=== PATIENT | male | born 1980 | race Hispanic/Latino ===

== ENCOUNTER 2018-01-29 11:06 | Outpatient (CLI) | payer MEDICARE ==
--- NOTE | 2018-01-29 11:53 | ULT ---
SONOGRAM ABDOMEN COMPLETE: HISTORY: Abnormal liver function tests. FINDINGS: Gallbladder has a normal appearance without evidence of stones. The common duct is 0.3 cm. The live r is hyperechoic without focal mass or intrahepatic biliary dilatation. No free fluid. The spleen, kidneys, and visualized portions of the abdominal aorta, IVC, and pancreas are unremarkable. IMPRESSION: 1. No evidence of gallstones or biliary obstruction. 2. Hepatosteatosis. POS: [facility]
== END 2018-01-29 11:07 | disposition home or self-care (01) ==
LOC: SCSULT 11:06
PROVIDERS: ATTEND Family Medicine
DX: R74.8 Abnormal levels of other serum enzymes (principal); K76.0 Fatty (change of) liver, not elsewhere classified
CPT/HCPCS: 76700

== ENCOUNTER 2020-08-19 12:40 | Inpatient (IN) | payer MEDICARE ==
[~2020-08-19 12:40] MED LIST: Dexamethasone 20 MG/5 ML VIAL ONE; Glycopyrrolate 0.2 MG/ML 5 ML SYRINGE ONE; Lidocaine 1% PF 5 ML VIAL ONE; Metoclopramide HCl 10 MG/2 ML VIAL ONE; Ondansetron PF 4 MG/2 ML Vial ONE; PROPOFOL 200 MG/20 ML VIAL ONE; Rocuronium Bromide 10 MG/ML (10ML VIAL) ONE
[2020-08-19] MEDS ORDERED: Iopamidol-370 76% 500 ML 1 ML ONE (13:44)
--- NOTE | 2020-08-19 14:11 | CT ---
Exam: CT angiogram of the abdominal aorta with bilateral lower extremity runoff HISTORY: Absent pulses in the left lower extremity. Peripheral vascular disease. COMPARISON: None TECHNIQUE: Multiple contiguous axial images were obtained a CTA of the abdomen, pelvis, and bilateral lower extremities with contrast. Sagittal and coronal 3-D MIP reformats were performed. FINDINGS: Liver: Unremarkable. Gallbladder: Unremarkable. Kidneys: Symmetric enhancement. There is scarring in the left renal cortex. No obstructive uropathy. Adrenal glands: Unremarkable. Spleen: Unremarkable. Pancreas: Unremarkable. Bowel: Limited evaluation of the lack of oral contrast. No evidence of a small bowel obstruction. Nor mal ileocecal junction. Normal caliber appendix. Diverticulosis is minimal. No diverticulitis. Colon is decompressed.. Reproductive organs :Unremarkable. Retroperitoneum: No lymphadenopathy Bones: Degenerative changes in the spine. Inferior thorax: 0.5 cm right lower lobe solid nodule.. Abdominal aorta. The descending thoracic aorta and suprarenal abdominal aorta have a normal caliber. There is a filling defect in the infrarenal abdominal aorta with mild luminal narrowing. This filling defect extends into the proximal left common iliac artery with long segment severe stenosis. Celiac trunk: Patent SMA: There is an occlusive thrombus involving the proximal superior mesenteric artery, just beyond it s origin. Distal to this 1.4 cm thrombus, the remainder of the proximal superior mesenteric artery appears to be patent. MAGDA: There is minimal thrombus in the proximal inferior mesenteric artery with linear defect. Renal arteries: Bilateral single renal arteries without significant atherosclerotic disease Bilateral common iliac arteries: There is severe stenosis of the left common iliac artery. Right comm on iliac artery is patent.. Internal iliac arteries: Unremarkable. External iliac arteries: Minimal nonocclusive thrombus involving the left external iliac artery. Severe stenosis Common femoral arteries: Unremarkable. Profunda femoral arteries: Unremarkable. Superficial femoral arteries: Unremarkable. Popliteal arteries: Unremarkable. Right lower extremity: 3 vessel runoff without significant disease. There is vascular enhancement of the right foot. Left lower extremity: There appears to be occlusion of the posterior vertebral artery and peroneal ar angelo. There appears to be single vessel supply from the anterior tibial artery down to level the ankle. There is vascular enhancement in the left foot. There is soft tissue swelling of the left foot . IMPRESSION: 1. Atherosclerosis involving the superior mesenteric artery. 2. Minimal linear defect. Atherosclerosis in the inferior mesenteric artery. 3. Severe stenosis involving the left common iliac artery. 4. Minimal thrombus in the left external iliac artery. 5. Occlusion of the left peroneal and posterior tibial artery, presumed to be due to a thrombus at th e origin of the left arterial trifurcation. Results study discussed with Dr. Albarado08/19/2020 at 2:06 PM Code CR Code lung nodule
[2020-08-19] MEDS ORDERED: Protamine Sulfate 50 MG/5 ML VIAL ONE ×2 (14:22→19:12)
[2020-08-19] MEDS ORDERED: Heparin 5,000 UNITS/ML VIAL ONE ×2 (14:22→19:12)
[2020-08-19] MEDS ORDERED: Fentanyl 250 MCG/5 ML VIAL ONE ×2 (14:33→19:08)
[2020-08-19] MEDS ORDERED: Promethazine HCl 25 MG/ML VIAL SLOW IVP PRN ×3 (16:57→20:59)
[2020-08-19] MEDS ORDERED: Promethazine HCl 25 MG/ML VIAL IM PRN ×3 (16:57→20:59)
[2020-08-19] MEDS ORDERED: Ondansetron HCl/PF 4 MG/2 ML Vial IVP PRN ×3 (16:57→20:59)
[2020-08-19] MEDS ORDERED: PACU-Morphine 4MG/ML VIAL SLOW IVP PRN (16:57)
[2020-08-19] MEDS ORDERED: HYDROmorphone 2 MG/ML VIAL SLOW IVP PRN ×2 (16:57→20:59)
[2020-08-19] MEDS ORDERED: Meperidine HCl/PF 25 MG/ML VIAL ONE ×2 (17:05→20:55)
[2020-08-19] MEDS ORDERED: Meperidine HCl/PF 25 MG/ML VIAL SLOW IVP PRN ×2 (17:06→20:59)
[2020-08-19] MEDS ORDERED: hydrALAZINE 20 MG/ML VIAL SLOW IVP PRN (17:23)
[2020-08-19] MEDS ORDERED: Sodium Chloride 0.9% 1,000 ML IV SCH (17:30)
[2020-08-19] MEDS ORDERED: HYDROcodone/Acetaminophen 5/325 mg Tablet PO PRN (17:31)
[2020-08-19] MEDS ORDERED: Fentanyl 100 MCG/2 ML VIAL ONE ×3 (17:35→19:29)
--- NOTE | 2020-08-19 18:07 | OP ---
DATE OF PROCEDURE: 08/19/2020 PROCEDURES PERFORMED: Left iliofemoral thrombectomy, selective left posterior tibial thrombectomy with patch angioplasty, and left lower extremity four compartment fasciotomy. PREOPERATIVE DIAGNOSIS: Acute left lower extremity ischemia. POSTOPERATIVE DIAGNOSIS: Acute left lower extremity ischemia. ANESTHESIA: General endotracheal anesthesia. INDICATIONS: The patient is a 40-year-old man, who presented with 2 days of pain in his left foot and clinically has an ischemic foot. FINDINGS: Small amounts of organized thrombus extracted from the iliofemoral vessels proximally and distally, but unable to pass the Maria Del Carmen catheter more than about 58 cm from the groin and selective posterior tibial thrombectomy was necessary to reestablish inflow to that point. Postoperatively, the patient's capillary refill gradually improved. There was a Doppler pulse of the posterior tibial in the foot and a palpable pulse in the anterior tibial within the fasciotomy wound. The muscles were pink, viable, and did not bulge. DESCRIPTION OF PROCEDURE: After informed consent was obtained, the patient was taken to the operating room and placed in supine position on the operating table. After induction of general anesthesia, the patient's left groin and left lower extremity were prepped and draped in sterile fashion. An oblique incision was made parallel and just below the left groin crease over the palpable femoral pulse. The superficial femoral artery was rather small. The profunda was rather large. The common femoral was modest size and had a palpable pulse in it. The common femoral was isolated and the patient was heparinized. After adequate circulation time of heparin, proximal and distal control was established on the common femoral artery and was opened longitudinally with an 11 blade scalpel and Metzger scissors. A #4 Maria Del Carmen catheter was passed distally down the superficial femoral artery. At first, it was not possible to pass it beyond about 45 or 50 cm and no thrombus was extracted when withdrawn. It was then passed another time and it could be passed almost 60 cm, and upon withdrawing it, a very small plug of organized thrombus was extracted. The Maria Del Carmen was passed two more times until no more thrombus was extracted. At each time the thrombus was extracted, it was only a small caliber organized thrombus with the exception of the first time the Maria Del Carmen was passed proximally, when a strand of relatively fresh thrombus was extracted. Upon examining the wound after establishing brisk inflow, a few small plugs of organized thrombus were identified within the wound that had not been seen as the Maria Del Carmen was withdrawn. Vascular controls were reapplied and the arteriotomy was closed with running 6-0 Prolene suture 60 cm from the groin corresponded about 1 to 1-1/2 handbreadths below the knee, just anterior to the saphenous vein. At that point, the skin was sharply incised medially and the tributary to the saphenous was ligated and divided. The fascia of the superficial posterior compartment was first incised, extending it proximally and distally and then the electrocautery was used to carry the incision through the musculature to expose the deep posterior compartment fascia. It was longitudinally incised and the posterior tibial artery was identified. It was reasonably good sized small vessel, though spastic. There was no palpable pulse in it. It was opened longitudinally and a #3 Maria Del Carmen catheter was passed distally. No thrombotic material was extracted, but upon passing it proximally, a plug of thrombotic material was extracted and brisk bleeding was reestablished at that level. The Maria Del Carmen was again passed. No more thrombus was extracted. A piece of the tributary to the saphenous in the wound was harvested and used as a vein patch to close that arteriotomy with running 7-0 Prolene suture. At that same level anterolaterally, an incision was made longitudinally and the anterior and lateral compartments were incised. Blunt dissection was used to divide the muscle bellies to unroof the anterior tibial and it had a palpable pulse to the length of that fasciotomy incision. The wounds were inspected for hemostasis, while there was some oozing from the fasciotomy incisions, hemostasis appeared to be grossly adequate within the dissection beds and adequate at the suture lines of arteriotomies. It was elected to not reverse the heparin and planned on starting a heparin drip a few hours postoperatively. The groin wound was closed in deep and superficial subcutaneous layers of Vicryl and then a Vicryl subcuticular suture and Dermabond, the fasciotomy incisions as there was no significant bulging of the musculature were loosely closed with widely spaced interrupted nylon skin suture. The wounds were dressed and the patient was awakened and extubated in the operating room and taken to the recovery area in good condition, where he had significantly improved color in the left foot, filling of the saphenous vein at the ankle, and a Doppler posterior tibial pulse. Job ID: [id number]
--- NOTE | 2020-08-19 18:26 | HP ---
CHIEF COMPLAINT: Left foot and calf pain. HISTORY OF PRESENT ILLNESS: The patient is a 40-year-old man, who several years ago had a left hemispheric stroke. There was somewhat sketchy description from the patient and his mother and son about having undergone knee surgery 10 years ago and 3 weeks after that having had a stroke due to "bunches of clots." The patient has been of late maintained only on an aspirin a day and has been in his usual state of health. About 2 days ago, he had sudden onset of pain in his left foot with crampy pain in his left calf. It persisted, and today, he decided to seek medical attention. He was found to have a cool, mottled left foot, and he was transferred here. The patient denies any palpitations, any known heart problems, or any antecedent leg pain consistent with claudication. PAST MEDICAL HISTORY: As above. MEDICATIONS: His only medicines are; 1. Adult aspirin. 2. Simvastatin 10 mg a day. 3. Baclofen 10 mg t.i.d. 4. Multivitamin. ALLERGIES: HE REPORTS AN ALLERGY TO PENICILLIN, BUT IS UNCLEAR TO THE REACTION IT CAUSES. SOCIAL HISTORY: He denies smoking or drinking. FAMILY HISTORY: He denies any family history of thrombotic disorders. REVIEW OF SYSTEMS: He has at baseline some right-sided weakness and dysarthria, but he has no episodic focal symptoms consistent with TIAs. No chest pain. No shortness of breath. No antecedent claudication. He has not had any recent fever, chills, cough, muscle aches, or shortness of breath. PHYSICAL EXAMINATION: GENERAL: He is in mild distress due to pain. VITAL SIGNS: Heart rate is 98, blood pressure 130/94, temperature 98.4. LUNGS: He has clear breath sounds. HEART: Regular rate and rhythm. ABDOMEN: Soft and nontender. EXTREMITIES: He has easily palpable radial, femoral, and popliteal pulses bilaterally. His right dorsalis pedis and posterior tibial pulses are easily palpable, and his right foot is warm and pink with brisk capillary refill. There is a temperature demarcation at about the ankle on the left. His left foot is pale with some mottling. I am not able to palpate or Doppler dorsalis pedis or posterior tibial pulses and the veins in that foot are flat. I am able to Doppler the proximal anterior tibial artery high in the calf. His compartments are somewhat tender, but seems soft. The sole of his foot seems tender and it is difficult to tell if he complains of compartment pain or pain in sole of his foot with passive dorsiflexion. LABORATORY EXAM: White count is 11.3, hemoglobin is 18.0, hematocrit 53.2, platelets 154,000. His electrolytes are normal. Glucose 110, BUN 25, creatinine 1.11, bilirubin is 2.7, alkaline phosphatase 133, AST 77, ALT 133, albumin 4.9. COVID is negative. His CTA that I requested shows short-segment thrombosis of the superior mesenteric artery near its origin. There is a layer of what appears to be organized thrombus along the left lateral aspect of the distal aorta, extending into and at some points almost occluding the common iliac artery, but the common iliac distally on down to the common femoral as well as the internal iliac readily opacify, down below the knee, the tibioperoneal trunk on the left side is occluded, but those vessels reconstitute the anterior tibial and perhaps is a little narrowed proximally, but is patent down to the foot. IMPRESSION AND RECOMMENDATION: It is not clear if this represents new thrombosis, embolism of organized thrombus either from a cardiac source or an aortic source, or if this represents some combination of that and atherosclerotic occlusive disease. His signs and symptoms would indicate that he seems to have a limited risk. We will plan on taking to the operating room for thrombectomy, but it may require short-segment bypass. Job ID: [id number]
[2020-08-19] MEDS ORDERED: Ondansetron PF 4 MG/2 ML Vial ONE (19:03)
[2020-08-19] MEDS ORDERED: Heparin 25,000 units/D5W 500 ML IV SCH (21:15)
[2020-08-19] MEDS ORDERED: Heparin 10,000 UNITS/ 10 ML VIAL SLOW IVP SCH (21:15)
[2020-08-19 22:56] VITALS: BMI 28.7
[2020-08-19] MEDS: Fentanyl 100 MCG/2 ML VIAL SLOW IVP PRN (23:29)
[2020-08-19] MEDS: HYDROcodone/Acetaminophen 5/325 mg Tablet PO PRN (23:31)
--- NOTE | 2020-08-20 00:20 | OP ---
DATE OF PROCEDURE: 08/19/2020 PROCEDURE PERFORMED: Redo left posterior tibial thrombectomy. PREOPERATIVE DIAGNOSIS: Recurrent ischemia, left foot. POSTOPERATIVE DIAGNOSIS: Recurrent ischemia, left foot. ANESTHESIA: General endotracheal anesthesia. INDICATIONS: The patient is a 40-year-old man with a what is described as a hypercoagulable syndrome associated with a stroke several years ago. He presented with a day or 2 of ischemic symptoms in his left foot and is immediately postop following an attempt at thrombectomy. Within an hour or 2 of surgery, his posterior tibial pulses have been Doppler and the bowl on the foot was lost and his foot had become mottled again. FINDINGS: Palpable pulse in the posterior tibial within the surgical wound, but a percussive quality to the Doppler signal. No thrombus could be extracted even though a Maria Del Carmen could be passed 8-10 cm beyond the medial malleolus. Postprocedure, a Doppler pulse could be found in the proximal foot in the posterior tibial position. DESCRIPTION OF PROCEDURE: After informed consent was obtained, the patient was returned to the operating room and placed in supine position on the operating table. After the induction of general anesthesia, his left lower extremity was prepped and draped in sterile fashion. The skin sutures from the medial incision on the lower leg were removed. The posterior tibial artery was exposed by using a Weitlaner retractor to separate the divided belly of the posterior compartment musculature. There was a palpable pulse in the posterior tibial artery. There was no thrombus within the wound compressing it or any kinking of the vessel. Doppler signal could not be found in the posterior tibial in the foot or in the distal ankle, but it could be found within the wound. This quality of signal however was rather percussive. Patient was heparinized and after adequate circulation time of heparin, vascular clamps were applied to the posterior tibial proximally and distally to the previous arteriotomy and patch. An 11 blade scalpel was used to take down the vein patch. #4 Maria Del Carmen catheter was passed several times distally as well as once proximally. No thrombus could be extracted. Very sluggish backflow bleeding was achieved from the posterior tibial distally even though extremely brisk inflow bleeding from the posterior tibial proximally was present. The tributary to the saphenous at the superior apex of the wound was harvested and bivalved and used as an onlay patch to close the arteriotomy with 7-0 Prolene suture. There was a Doppler signal in the posterior tibial in the foot fairly proximally, but could not be followed along the medial malleolus distally. When hemostasis was adequate, the skin was reclosed with interrupted nylon suture and the wounds were dressed. The patient returned to the recovery area in good condition. Job ID: [id number]
[2020-08-20 00:55] LABS: #Monocytes 0.9 thou/uL (0.11-0.59); #Neutrophils 9.6 thou/uL (1.40-6.50); %Basophils 0.1 % (0.0-1.0); %Lymphocytes 8.8 % (21.0-51.0); %Monocytes 7.7 % (0.0-10.0); %Neutrophils 83.3 % (42.0-75.0); Hemoglobin 13.8 g/dL (14.0-18.0); Mean Corpuscular HGB CONC 34.5 g/dL (32.0-36.0); Mean Corpuscular Hemoglobin 31.4 pg (27.0-31.0); Mean Corpuscular Volume 91.1 fL (78.0-98.0); Mean Platelet Volume 8.7 fL (7.4-10.4); Platelet Count 111 thou/uL (130-400); Platelet Morphology Comment Appears Decreased; RBC Distribution Width 10.9 % (11.5-14.5); Red Blood Cell (RBC) Count 4.39 mill/uL (4.70-6.10); White Blood Cell (WBC) Count 11.6 thou/uL (4.8-10.8)
--- NOTE | 2020-08-20 01:30 | PDOC.HHP ---
Hospitalist HPI - History of Present Illness Consult for arterial thrombus History of Present Illness: This is a 40-year-old male with a history of hypercoagulable syndrome, CVA about 7 years ago with residual right-sided weakness and expressive aphasia who was transferred from [place] due to concerns for lower extremity arterial occlusion on the left. He is status post redo of left lower limb arterial thrombectomy. Patient notes that he has been having this pain for over a week now however for the past couple days has become extremely painful. CTA showed atherosclerosis involving the superior mesenteric artery, inferior mesenteric artery with severe stenosis involving the left common iliac artery. He also had minimal thrombus in his left external iliac artery. There was also occlusion of the left peroneal and posterior tibial artery presumably due to thrombus at the origin of the left anterior trifurcation. Based on that he was transferred here for further management. On arrival he was taken to surgery for attempted thrombectomy. 2 hours after surgery he seemed to have developed worsening circulation with mottled foot status requiring a redo of his left posterior tibial thrombectomy. Postop he was generally stable and sent to the CCU. Hospitalist team was consulted for medical management. At the time of my evaluation, postop, patient was lying in bed comfortably however intermittently appears to be in pain in his left lower extremity and sometimes on the right. Besides lower extremity pain he denied any other symptoms of chest pain shortness of breath abdominal pain or dysuria or frequency. Also denied any headache. His vital signs were essentially within normal limits. Preop labs showed WBC 11.6, hemoglobin 13.8, platelets 111, CBC was essentially within normal limits. He had slightly elevated AST at 77, ALT 63 and alkaline phosphatase 133. His medications include aspirin, hydrocodone, fentanyl, as needed hydralazine and he was due to start heparin at 2 AM on 08/20/2020. Hospitalist ROS - Review of Systems Constitutional: denies: fever, chills, sweats, weakness Respiratory: denies: cough, shortness of breath, hemoptysis, SOB with excertion Cardiovascular: denies: chest pain, palpitations, orthopnea, paroxysmal noc. dyspnea Genitourinary: denies: dysuria, frequency, incontinence, hematuria Neurological: denies: weakness, numbness, incoordination, change in speech Other: Patient has chronic dysphagia and expressive aphasia All other systems reviewed; all pertinent +/- noted in HPI/Subj - Medication Medications: Active Medications Generic Name Dose Route Start Last Admin Trade Name Freq PRN Reason Stop Dose Admin Hydrocodone Bitart/Acetaminophen 2 tab 08/19/20 17:31 08/19/20 23:31 Hydrocodone/Acetaminophen 5/325 Mg Tablet PO 2 tab Q4H PRN Administration Severe Pain (7-10) Fentanyl 50 mcg 08/19/20 23:17 08/19/20 23:29 Fentanyl 100 Mcg/2 Ml Vial SLOW IVP 50 mcg Q1H PRN Administration Moderate to Severe Pain (6-10) Sodium Chloride 1,000 mls @ 100 mls/hr 08/19/20 17:30 08/19/20 23:29 Normal Saline 0.9% IV 08/20/20 03:29 1,000 mls .Q10H YURY Administration Sodium Chloride 10 ml 08/19/20 21:00 08/19/20 23:29 Flush - Normal Saline 10 Ml Syringe IVF 10 ml Q12HR YURY Administration Medications: Currently refer to ambulatory María. Allergies: Penicillin - Exam General Appearance: awake alert General - other findings: Has expressive aphasia. Eye: PERRL, anicteric sclera ENT: normocephalic atraumatic, no oropharyngeal lesions, moist mucosa Neck: supple, symmetric, no JVD, no thyromegaly Heart: RRR, no murmur, no gallops, no rubs Respiratory: CTAB, no wheezes, no rales, no ronchi Gastrointestinal: soft, non-tender, non-distended, normal bowel sounds Extremities: no cyanosis, no clubbing, no edema Extremities - other findings: Left leg surgery site is dressed. Skin mottled slightly Neurological - other findings: Dysarthric/aphasic otherwise cranial nerves grossly intact Musculoskeletal: normal tone, normal strength, no muscle wasting Psychiatric: normal affect, normal behavior, A&O x 3 Hospitalist Results - Labs Result Diagrams: 08/20/20 00:29 Lab results: WBC 11.6 thou/uL (4.8-10.8) H 08/20/20 00:29 Hgb 13.8 g/dL (14.0-18.0) L 08/20/20 00:29 Hct 40.0 % (42.0-52.0) L 12/27/20 00:29 MCV 91.1 fL (78.0-98.0) 08/20/20 00:29 Plt Count 111 thou/uL (130-400) L 08/20/20 00:29 Neutrophils % 83.3 % (42.0-75.0) H 08/20/20 00:29 Hospitalist H&P A/P - Plan Plan: This is a 40-year-old male patient with a history of stroke with residual right- sided weakness on admission on account of left lower extremity has 3 thrombosis in a status post thrombectomy and repeat procedure. Left arterial thrombosis Likely in the setting of hypercoagulable state. Aspirinstart heparin later We will monitor As needed pain relief Vascular surgery following. Hypercoagulable state This is not defined however will get hematology to assess in a.m. We will continue monitoring. Normal liver enzymes We will check acute hepatitis panel Consider GI evaluation in a.m. DVT prophylaxisto start heparin CODE STATUSfull
[2020-08-20] MEDS ORDERED: Heparin 25,000 units/D5W 500 ML IV SCH (02:00)
[2020-08-20] MEDS: Fentanyl 100 MCG/2 ML VIAL SLOW IVP PRN ×5 (02:05→22:39)
--- NOTE | 2020-08-20 09:36 | PDOC.HOSPP ---
- Subjective Encounter Date: 08/20/20 Encounter Time: 09:34 Subjective: Mr. Pruitt was seen today in follow-up of severe peripheral vascular disease, and recent thrombus to rigth lower extemity. He notes pain in his right leg. Due to aphasia, he is not able to elaborate much on this. - Objective Vital Signs & Weight: Vital Signs (12 hours) Temp Pulse Ox 08/20/20 04:00 99.0 F 08/20/20 00:00 98.0 F 08/19/20 22:00 97.8 F 100 Weight Weight 172 lb 6.424 oz Most Recent Monitor Data Heart Rate from ECG 96 NIBP 142/81 NIBP BP-Mean 101 Respiration from ECG 11 SpO2 98 I&O: 08/19/20 08/20/20 08/21/20 06:59 06:59 06:59 Intake Total 1506.3 Output Total 1460 225 Balance 46.3 -225 Result Diagrams: 08/20/20 00:29 Hospitalist ROS - Medication Medications: Active Medications Generic Name Dose Route Start Last Admin Trade Name Freq PRN Reason Stop Dose Admin Hydrocodone Bitart/Acetaminophen 2 tab 08/19/20 17:31 08/19/20 23:31 Hydrocodone/Acetaminophen 5/325 Mg Tablet PO 2 tab Q4H PRN Administration Severe Pain (7-10) Fentanyl 50 mcg 08/19/20 23:17 08/20/20 08:18 Fentanyl 100 Mcg/2 Ml Vial SLOW IVP 50 mcg Q1H PRN Administration Moderate to Severe Pain (6-10) Heparin Sodium/Dextrose 500 mls @ 0 mls/hr 08/20/20 02:00 08/20/20 02:04 Heparin 25,000 Units/D5w IV 500 mls INF YURY Administration Protocol As Directed Sodium Chloride 10 ml 08/19/20 21:00 08/19/20 23:29 Flush - Normal Saline 10 Ml Syringe IVF 10 ml Q12HR YURY Administration - Exam Eye: PERRL, anicteric sclera Heart: RRR, no murmur, no gallops, no rubs, normal peripheral pulses Respiratory: CTAB, no wheezes, no rales, no ronchi, normal chest expansion Gastrointestinal: soft, non-tender, non-distended, normal bowel sounds, no palpable masses Extremities: no cyanosis (incision site looks good, bilaterally, pulses are diminished on the right ( d.p.) feet are a bit cool, and capillary refill is a bit sluggish) Hosp A/P (1) Thrombosis of artery of right lower extremity Code(s): I74.3 - EMBOLISM AND THROMBOSIS OF ARTERIES OF THE LOWER EXTREMITIES Status: Acute (2) Hypercoagulable state Code(s): D68.59 - OTHER PRIMARY THROMBOPHILIA Status: Chronic (3) History of CVA (cerebrovascular accident) Code(s): Z86.73 - PRSNL HX OF TIA (TIA), AND CEREB INFRC W/O RESID DEFICITS Status: Chronic - Plan * Thrombosis of the right lower extremity, s/p thrombectomy- patient is clinically stable- continue Heparin drip * Will check a thrombosis panel * History of CVA with mild aphasia and right sided weakness- clinically stable- continue aspirin. He is not on a statin - will check a lipid panel in the AM to assess the need
[2020-08-20 09:47] LABS: INR-International Normal Ratio 1.1; Prothrombin Time 14.3 sec (12.0-14.7)
[2020-08-20 09:48] LABS: PTT 89.2 sec (22.9-36.1)
[2020-08-20 09:49] LABS: D-Dimer Test 0.76 *mcg/mL (0.27-0.43)
[2020-08-20] MEDS: HYDROcodone/Acetaminophen 5/325 mg Tablet PO PRN ×3 (10:20→23:50)
[2020-08-20] MEDS: Aspirin Chewable 81 MG TAB PO SCH (10:20)
[2020-08-20 16:12] LABS: Cardiolipin IgG Ab Greater than 418.0 GPL-U/mL (<10 Negative); Cardiolipin IgM Ab 4.3 MPL-U/mL (<10 Negative); EliA APS New Method **** NEW METHOD ****
[2020-08-20] MEDS ORDERED: Albuterol Sulfate 2.5 mg/3 ml Neb NEB PRN (22:14)
[2020-08-21] MEDS: Fentanyl 100 MCG/2 ML VIAL SLOW IVP PRN ×5 (03:42→23:39)
[2020-08-21 06:44] LABS: Cardiac Risk 4.4 (Less than 4.5)
[2020-08-21] MEDS: Aspirin Chewable 81 MG TAB PO SCH (08:37)
--- NOTE | 2020-08-21 09:46 | PDOC.HOSPP ---
- Subjective Encounter Date: 08/21/20 Encounter Time: 11:00 Subjective: Patient with persistent ischemic pain from left foot. Just got pain meds. Awaiting them to take him down for surgery for amputation. - Objective Vital Signs & Weight: Vital Signs (12 hours) Temp Pulse Resp BP Pulse Ox 08/21/20 08:02 98.1 F 99 20 119/87 100 08/21/20 03:48 98.1 F 88 16 138/81 98 08/20/20 23:22 99.7 F H 96 18 143/85 H 99 Weight Weight 172 lb 6.424 oz Most Recent Monitor Data Heart Rate from ECG 102 NIBP 162/98 NIBP BP-Mean 119 Respiration from ECG 20 SpO2 97 I&O: 08/20/20 08/21/20 08/22/20 06:59 06:59 06:59 Intake Total 1506.3 Output Total 1460 565 400 Balance 46.3 -563 -400 Result Diagrams: 08/20/20 00:29 Hospitalist ROS - Review of Systems Constitutional: denies: fever, chills Respiratory: denies: cough, shortness of breath Cardiovascular: denies: chest pain, palpitations Gastrointestinal: denies: nausea, vomiting, abdominal pain Musculoskeletal: reports: leg pain, foot pain - Medication Medications: Active Medications Generic Name Dose Route Start Last Admin Trade Name Freq PRN Reason Stop Dose Admin Hydrocodone Bitart/Acetaminophen 2 tab 08/19/20 17:31 08/20/20 23:50 Hydrocodone/Acetaminophen 5/325 Mg Tablet PO 2 tab Q4H PRN Administration Severe Pain (7-10) Aspirin 81 mg 08/20/20 09:00 08/21/20 08:37 Aspirin Chewable 81 Mg Tab PO Not Given DAILY YURY Fentanyl 50 mcg 08/19/20 23:17 08/21/20 08:34 Fentanyl 100 Mcg/2 Ml Vial SLOW IVP 50 mcg Q1H PRN Administration Moderate to Severe Pain (6-10) Heparin Sodium/Dextrose 500 mls @ 0 mls/hr 08/20/20 02:00 08/20/20 02:04 Heparin 25,000 Units/D5w IV 500 mls INF YURY Administration Protocol As Directed Sodium Chloride 10 ml 08/19/20 21:00 08/21/20 08:38 Flush - Normal Saline 10 Ml Syringe IVF 10 ml Q12HR YURY Administration - Exam General Appearance: NAD, awake alert ENT: moist mucosa Heart: RRR, no murmur, no gallops, no rubs Respiratory: CTAB, no wheezes, no rales, no ronchi Gastrointestinal: soft, non-tender, non-distended, normal bowel sounds, no palpable masses, no hepatomegaly, no splenomegaly Extremities - other findings: left foot with cyanosis, no pulse Neurological - other findings: partial aphasia from previous stroke Psychiatric: normal affect, normal behavior, A&O x 3 Hosp A/P - Plan (1) Thrombosis of artery of right lower extremity Code(s): I74.3 - EMBOLISM AND THROMBOSIS OF ARTERIES OF THE LOWER EXTREMITIES Status: Acute (2) Hypercoagulable state Code(s): D68.59 - OTHER PRIMARY THROMBOPHILIA Status: Chronic (3) History of CVA (cerebrovascular accident) Code(s): Z86.73 - PRSNL HX OF TIA (TIA), AND CEREB INFRC Status: Chronic - Plan * Thrombosis of the right lower extremity, s/p thrombectomy and loss of pulse again, patient has discussed with surgeon and going down for amputation * Will check a thrombosis panel- results pending * 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 He is not on a statin - lipid profile here within normal limits
[2020-08-21] MEDS ORDERED: PROPOFOL 200 MG/20 ML VIAL ONE (10:10)
[2020-08-21] MEDS ORDERED: Ketorolac Tromethamine 30 MG/ML VIAL ONE (10:10)
[2020-08-21] MEDS ORDERED: Lidocaine 1% PF 5 ML VIAL ONE (10:10)
[2020-08-21] MEDS ORDERED: Ondansetron PF 4 MG/2 ML Vial ONE (10:10)
[2020-08-21] MEDS ORDERED: Dexamethasone 20 MG/5 ML VIAL ONE (10:10)
[2020-08-21] MEDS ORDERED: Fentanyl 100 MCG/2 ML VIAL ONE ×3 (11:57→14:43)
[2020-08-21] MEDS ORDERED: Promethazine HCl 25 MG/ML VIAL IM PRN (14:02)
[2020-08-21] MEDS ORDERED: Promethazine HCl 25 MG/ML VIAL SLOW IVP PRN (14:02)
[2020-08-21] MEDS ORDERED: HYDROmorphone 2 MG/ML VIAL SLOW IVP PRN (14:02)
[2020-08-21] MEDS ORDERED: Ondansetron HCl/PF 4 MG/2 ML Vial IVP PRN (14:02)
--- NOTE | 2020-08-21 15:00 | OP ---
DATE OF PROCEDURE: 08/21/2020 PROCEDURE PERFORMED: Left below-knee amputation. PREOPERATIVE DIAGNOSIS: Ischemic left foot. POSTOPERATIVE DIAGNOSIS: Ischemic left foot. ANESTHESIA: General, LMA. INDICATIONS: The patient is a 40-year-old man with an apparent hypercoagulable syndrome, who presented with an ischemic left foot and repeated attempts of thrombectomy were unsuccessful in re-establishing adequate flow to the foot. He is now taken to the operating room for amputation. FINDINGS: Posterior compartment musculature was ischemic very distally, but was amenable to dividing it proximally enough to get to a good level of healthy tissue. DESCRIPTION OF PROCEDURE: After informed consent was obtained, the patient was taken to the operating room and placed in supine position on the operating table. After the induction of general anesthesia and confirmation that his left lower extremity was indeed the amputation to undergo amputation, his left leg was prepped and draped in sterile fashion. A transverse incision was made over the anterior aspect of the lower leg at the level of the proximal apices, the fasciotomy incisions medially and laterally. The incision was extended longitudinally parallel to the long axis of the leg. The electrocautery was used to carry that dissection through the subcutaneous tissue at the level of the proximal transverse incision. The electrocautery was used to divide through the musculature of the anterolateral compartments. The neurovascular bundle was ligated and divided and then periosteal elevator was used to strip the periosteum from the tibia and the fibula at that level. A Gigli saw was used to make an angled transection of the tibia and bone nikkie were used to divide the fibula. An amputation knife was then used to complete the amputation at the posterior flap. Hemostasis was established with the use of the electrocautery and silk ligatures. The stumps of the tibia and fibula were smoothed with a bone rasp and then the posterior flap was tailored with a knife and electrocautery. The posterior compartment musculature as well as anterolateral compartment musculature was fairly bulky. This was invaginated as interrupted heavy Vicryl sutures were used to tack the posterior flap anteriorly. The skin was closed with interrupted nylon skin sutures. A bulky dressing and Carlos A wrap were applied, and the patient was awakened in the operating room and taken to the recovery area in stable condition. Job ID: [id number]
[2020-08-21] MEDS: Cyclobenzaprine 10 MG TAB PO PRN (19:48)
[2020-08-21] MEDS: HYDROcodone/Acetaminophen 5/325 mg Tablet PO PRN (22:18)
[2020-08-22] MEDS: Cyclobenzaprine 10 MG TAB PO PRN ×2 (06:21→16:15)
[2020-08-22] MEDS: Fentanyl 100 MCG/2 ML VIAL SLOW IVP PRN ×2 (06:27→11:34)
--- NOTE | 2020-08-22 07:36 | PDOC.HOSPP ---
- Subjective Encounter Date: 08/22/20 Encounter Time: 10:00 Subjective: Patient with some postoperative pain. No other complaints. - Objective Vital Signs & Weight: Vital Signs (12 hours) Temp Pulse Resp BP Pulse Ox 08/22/20 03:32 98.2 F 84 16 144/96 H 98 08/21/20 23:28 98.0 F 86 16 162/90 H 98 Weight Weight 172 lb 6.424 oz Most Recent Monitor Data Heart Rate from ECG 102 NIBP 162/98 NIBP BP-Mean 119 Respiration from ECG 20 SpO2 97 I&O: 08/21/20 08/22/20 08/23/20 06:59 06:59 06:59 Output Total 565 1100 Balance -565 -1100 Result Diagrams: 08/20/20 00:29 Hospitalist ROS - Review of Systems Constitutional: denies: fever, chills Respiratory: denies: cough, shortness of breath Cardiovascular: denies: chest pain, palpitations Gastrointestinal: denies: nausea, vomiting, abdominal pain Musculoskeletal: reports: leg pain (left stump) - Medication Medications: Active Medications Generic Name Dose Route Start Last Admin Trade Name Freq PRN Reason Stop Dose Admin Hydrocodone Bitart/Acetaminophen 2 tab 08/19/20 17:31 08/21/20 22:18 Hydrocodone/Acetaminophen 5/325 Mg Tablet PO 2 tab Q4H PRN Administration Severe Pain (7-10) Aspirin 81 mg 08/20/20 09:00 08/21/20 08:37 Aspirin Chewable 81 Mg Tab PO Not Given DAILY [facility] Cyclobenzaprine HCl 10 mg 08/19/20 23:42 08/22/20 06:21 Cyclobenzaprine 10 Mg Tab PO 10 mg TID PRN Administration Muscle Spasm Fentanyl 50 mcg 08/19/20 23:17 08/22/20 06:27 Fentanyl 100 Mcg/2 Ml Vial SLOW IVP 50 mcg Q1H PRN Administration Moderate to Severe Pain (6-10) Sodium Chloride 10 ml 08/19/20 21:00 08/21/20 22:28 Flush - Normal Saline 10 Ml Syringe IVF Not Given Q12HR YURY - Exam General Appearance: NAD, awake alert ENT: moist mucosa Heart: RRR, no murmur, no gallops, no rubs Respiratory: CTAB, no wheezes, no rales, no ronchi Gastrointestinal: soft, non-tender, non-distended, normal bowel sounds Extremities - other findings: LLE s/p BKA with postop dressing in place C/D/I Psychiatric: normal affect, normal behavior, A&O x 3 Hosp A/P - Plan (1) Thrombosis of artery of right lower extremity Code(s): I74.3 - EMBOLISM AND THROMBOSIS OF ARTERIES OF THE LOWER EXTREMITIES Status: Acute (2) Hypercoagulable state Code(s): D68.59 - OTHER PRIMARY THROMBOPHILIA Status: Chronic (3) History of CVA (cerebrovascular accident) Code(s): Z86.73 - PRSNL HX OF TIA (TIA), AND CEREB INFRC Status: Chronic - Plan * S/P LLE BKA on 08/21/2020 * Will check a thrombosis panel- results pending, anticardiolipin IgG positive but IgM negative, possible APS, will need outpatient f/u with hematology and likely Coumadin plus aspirin on discharge when ok with surgery * 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 He is not on a statin - lipid profile here within normal limits
[2020-08-22] MEDS: HYDROcodone/Acetaminophen 5/325 mg Tablet PO PRN ×3 (08:18→20:50)
[2020-08-22] MEDS: Aspirin Chewable 81 MG TAB PO SCH (08:18)
[2020-08-23] MEDS: Fentanyl 100 MCG/2 ML VIAL SLOW IVP PRN ×9 (01:55→23:34)
[2020-08-23] MEDS: Cyclobenzaprine 10 MG TAB PO PRN ×3 (02:04→18:37)
[2020-08-23] MEDS: HYDROcodone/Acetaminophen 5/325 mg Tablet PO PRN ×5 (03:59→21:13)
--- NOTE | 2020-08-23 08:22 | PDOC.HOSPP ---
- Subjective Encounter Date: 08/23/20 Encounter Time: 10:30 Subjective: Patient with pain at amputation site. No other complaints. - Objective Vital Signs & Weight: Vital Signs (12 hours) Temp Pulse Resp BP Pulse Ox 08/23/20 07:40 98.7 F 114 H 14 144/96 H 97 08/23/20 03:33 97.8 F 100 18 145/95 H 99 08/22/20 23:12 98.5 F 96 18 148/100 H 96 Weight Weight 172 lb 6.424 oz Most Recent Monitor Data Heart Rate from ECG 102 NIBP 162/98 NIBP BP-Mean 119 Respiration from ECG 20 SpO2 97 I&O: 08/22/20 08/23/20 08/24/20 06:59 06:59 06:59 Output Total 1100 225 Balance -1100 -225 Result Diagrams: 08/20/20 00:29 Hospitalist ROS - Review of Systems Constitutional: denies: fever, chills Respiratory: denies: cough, shortness of breath Cardiovascular: denies: chest pain, palpitations Gastrointestinal: denies: nausea, vomiting, abdominal pain Musculoskeletal: reports: leg pain - Medication Medications: Active Medications Generic Name Dose Route Start Last Admin Trade Name Freq PRN Reason Stop Dose Admin Hydrocodone Bitart/Acetaminophen 2 tab 08/19/20 17:31 08/23/20 07:25 Hydrocodone/Acetaminophen 5/325 Mg Tablet PO 2 tab Q4H PRN Administration Severe Pain (7-10) Aspirin 81 mg 08/20/20 09:00 08/22/20 08:18 Aspirin Chewable 81 Mg Tab PO 81 mg DAILY YURY Administration Cyclobenzaprine HCl 10 mg 08/19/20 23:42 08/23/20 02:04 Cyclobenzaprine 10 Mg Tab PO 10 mg TID PRN Administration Muscle Spasm Fentanyl 50 mcg 08/19/20 23:17 08/23/20 07:25 Fentanyl 100 Mcg/2 Ml Vial SLOW IVP 50 mcg Q1H PRN Administration Moderate to Severe Pain (6-10) Sodium Chloride 10 ml 08/19/20 21:00 08/23/20 07:31 Flush - Normal Saline 10 Ml Syringe IVF 10 ml Q12HR YURY Administration - Exam General Appearance: NAD, awake alert ENT: moist mucosa Heart: RRR, no murmur, no gallops, no rubs Respiratory: CTAB, no wheezes, no rales, no ronchi Gastrointestinal: soft, non-tender, non-distended, normal bowel sounds Extremities - other findings: LLE BKA stump with dressing C/D/I Psychiatric: normal affect, normal behavior, A&O x 3 Hosp A/P - Plan (1) Thrombosis of artery of right lower extremity Code(s): I74.3 - EMBOLISM AND THROMBOSIS OF ARTERIES OF THE LOWER EXTREMITIES Status: Acute (2) Hypercoagulable state Code(s): D68.59 - OTHER PRIMARY THROMBOPHILIA Status: Chronic (3) History of CVA (cerebrovascular accident) Code(s): Z86.73 - PRSNL HX OF TIA (TIA), AND CEREB INFRC Status: Chronic - Plan * S/P LLE BKA on 08/21/2020 * Will check a thrombosis panel- results pending, anticardiolipin IgG positive but IgM negative, possible APS, will need outpatient f/u with hematology. Dr. Teran has cleared patient to start Eliquis. 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 He is not on a statin - lipid profile here within normal limits * Patient will need rehabilitation
[2020-08-23] MEDS: Aspirin Chewable 81 MG TAB PO SCH (09:52)
[2020-08-23] MEDS: Apixaban 5 MG TAB PO SCH ×2 (09:52→20:27)
[2020-08-23 11:23] LABS: HEX PHOS LA Tube 2 60.1 SEC; Hexagonal Phospholipid Neut 16.9 SEC (0-8.0); Protein C Activity 78 % (78-152)
[2020-08-23 11:24] LABS: Factor VIII Test 366.5 % ACTIVE (56-157)
[2020-08-24] MEDS: HYDROcodone/Acetaminophen 5/325 mg Tablet PO PRN ×6 (00:47→23:16)
[2020-08-24 05:40] LABS: #Basophils 0.1 thou/uL (0.0-0.2); #Eosinphils 0.1 thou/uL (0.0-0.7); #Lymphocytes 1.8 thou/uL (1.20-3.40); #Monocytes 1.7 thou/uL (0.11-0.59); #Neutrophils 10.9 thou/uL (1.40-6.50); %Basophils 0.5 % (0.0-1.0); %Eosinophils 0.8 % (0.0-10.0); %Lymphocytes 12.6 % (21.0-51.0); %Monocytes 11.5 % (0.0-10.0); %Neutrophils 74.5 % (42.0-75.0); Hemoglobin 14.1 g/dL (14.0-18.0); Mean Corpuscular HGB CONC 32.9 g/dL (32.0-36.0); Mean Corpuscular Hemoglobin 30.3 pg (27.0-31.0); Mean Corpuscular Volume 92.1 fL (78.0-98.0); Mean Platelet Volume 8.2 fL (7.4-10.4); Platelet Count 295 thou/uL (130-400); RBC Distribution Width 11.1 % (11.5-14.5); Red Blood Cell (RBC) Count 4.63 mill/uL (4.70-6.10); White Blood Cell (WBC) Count 14.6 thou/uL (4.8-10.8)
[2020-08-24 05:41] LABS: INR-International Normal Ratio 1.3; Prothrombin Time 16.5 sec (12.0-14.7)
[2020-08-24 05:58] LABS: Anion Gap 16 mmol/L (10-20); BUN (Urea Nitrogen) 13 mg/dL (8.9-20.6); Calc. Creatinine Clearance 141 mL/min (70-130); Calcium 9.1 mg/dL (7.8-10.44); Carbon Dioxide 23 mmol/L (22-29); Chloride 100 mmol/L (98-107); Glucose 125 mg/dL (70-105); Sodium 135 mmol/L (136-145)
--- NOTE | 2020-08-24 07:40 | PDOC.HOSPP ---
- Subjective Encounter Date: 08/24/20 Encounter Time: 10:00 Subjective: Patient with stump pain. No other complaints. No cough/SOB. Has been tachycardic since yesterday. - Objective Vital Signs & Weight: Vital Signs (12 hours) Temp Pulse Resp BP Pulse Ox 08/24/20 03:21 97.4 F L 102 H 16 132/92 H 96 08/23/20 23:19 98.9 F 117 H 16 150/108 H 92 L 08/23/20 19:52 98.3 F 119 H 16 139/93 H 98 Weight Weight 172 lb 6.424 oz Most Recent Monitor Data Heart Rate from ECG 102 NIBP 162/98 NIBP BP-Mean 119 Respiration from ECG 20 SpO2 97 I&O: 08/23/20 08/24/20 08/25/20 06:59 06:59 06:59 Intake Total 1764 Output Total 225 1150 Balance -225 614 Result Diagrams: 08/24/20 05:19 08/24/20 05:19 Radiology Reviewed by me: Yes (no acute abnormalities) Hospitalist ROS - Review of Systems Constitutional: denies: fever, chills Respiratory: denies: cough, shortness of breath Cardiovascular: denies: chest pain, palpitations Gastrointestinal: denies: nausea, vomiting, abdominal pain Genitourinary: denies: dysuria, hematuria Musculoskeletal: reports: leg pain - Medication Medications: Active Medications Generic Name Dose Route Start Last Admin Trade Name Freq PRN Reason Stop Dose Admin Hydrocodone Bitart/Acetaminophen 2 tab 08/19/20 17:31 08/24/20 06:05 Hydrocodone/Acetaminophen 5/325 Mg Tablet PO 2 tab Q4H PRN Administration Severe Pain (7-10) Apixaban 5 mg 08/23/20 09:00 08/23/20 20:27 Apixaban 5 Mg Tab PO 5 mg BID YURY Administration Aspirin 81 mg 08/20/20 09:00 08/23/20 09:52 Aspirin Chewable 81 Mg Tab PO 81 mg DAILY YURY Administration Cyclobenzaprine HCl 10 mg 08/19/20 23:42 08/23/20 18:37 Cyclobenzaprine 10 Mg Tab PO 10 mg TID PRN Administration Muscle Spasm Fentanyl 25 mcg 08/19/20 23:16 08/23/20 18:37 Fentanyl 100 Mcg/2 Ml Vial SLOW IVP 25 mcg Q1H PRN Administration Mild-Moderate Pain (1-5) Fentanyl 50 mcg 08/19/20 23:17 08/23/20 23:34 Fentanyl 100 Mcg/2 Ml Vial SLOW IVP 50 mcg Q1H PRN Administration Moderate to Severe Pain (6-10) Sodium Chloride 10 ml 08/19/20 21:00 08/23/20 20:27 Flush - Normal Saline 10 Ml Syringe IVF 10 ml Q12HR YURY Administration - Exam General Appearance: NAD, awake alert ENT: moist mucosa Heart: no murmur, no gallops, no rubs. negative: irregular Heart - other findings: mild tachycardia Respiratory: CTAB, no wheezes, no rales, no ronchi Gastrointestinal: soft, non-tender, non-distended, normal bowel sounds Extremities - other findings: left BKA with dressing C/D/I Psychiatric: normal affect, normal behavior, A&O x 3 Hosp A/P - Plan (1) Thrombosis of artery of right lower extremity Code(s): I74.3 - EMBOLISM AND THROMBOSIS OF ARTERIES OF THE LOWER EXTREMITIES Status: Acute (2) Hypercoagulable state Code(s): D68.59 - OTHER PRIMARY THROMBOPHILIA Status: Chronic (3) History of CVA (cerebrovascular accident) Code(s): Z86.73 - PRSNL HX OF TIA (TIA), AND CEREB INFRC Status: Chronic - Plan * S/P LLE BKA on 08/21/2020 * Will check a thrombosis panel- results pending, anticardiolipin IgG positive but IgM negative, possible APS, will need outpatient f/u with hematology. Dr. Teran has cleared patient to start Eliquis. 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 He is not on a statin - lipid profile here within normal limits * Patient will need rehabilitation * Tachycardia past 24 hours. Uncertain eitiology. WBC minimally elevated. No anemia. Will check UA, CXR (negative), EKG. Watch for fever. Already started on anticoagulation so doubt clot related.
--- NOTE | 2020-08-24 08:05 | RAD ---
Chest one view HISTORY: Tachycardia. Postop. FINDINGS: Cardiac silhouette and pulmonary vasculature are unremarkable. Mediastinum is midline. No confluent airspace consolidation or evidence of pneumothorax. Left first ribs are hypoplastic. Lef t partially fused to the second rib. Right articulates with the second rib. Irregular curvilinear hyperdensities projecting over the right glenohumeral joint may represent extri nsic artifact. IMPRESSION : No acute abnormalities are demonstrated.
[2020-08-24] MEDS: Aspirin Chewable 81 MG TAB PO SCH (10:14)
[2020-08-24] MEDS: Apixaban 5 MG TAB PO SCH ×2 (10:14→20:07)
[2020-08-24 13:53] LABS: Bacteria/HPF None Seen HPF (None Seen); Bilirubin Negative (Negative); Blood, Urine 2+ (Negative); Clarity Clear (Clear); Glucose, Urine (Dipstick) Normal (Negative); Ketone, Urine 10 mg/dL (Negative); Leukocyte Negative Leu/uL (Negative); Nitrite Negative (Negative); Protein, Urine (Dipstick) 50 mg/dL (Neg-Trace); RBC/HPF 0-3 HPF (0-3); Specific Gravity, Urine 1.029 (1.002-1.036); Squamous Epithelial None Seen HPF (0-3); Urobilinogen Greater than 12 mg/dL (Less than 2); WBC/HPF 0-3 HPF (0-3); pH, Urine 6.5 (5.0-9.0)
[2020-08-24] MEDS: Fentanyl 100 MCG/2 ML VIAL SLOW IVP PRN ×3 (15:21→21:38)
[2020-08-24] MEDS: Cyclobenzaprine 10 MG TAB PO PRN (20:06)
[2020-08-25] MEDS: HYDROcodone/Acetaminophen 5/325 mg Tablet PO PRN ×4 (05:56→18:59)
[2020-08-25] MEDS: Cyclobenzaprine 10 MG TAB PO PRN ×2 (09:16→15:02)
[2020-08-25] MEDS: Aspirin Chewable 81 MG TAB PO SCH (09:16)
[2020-08-25] MEDS: Apixaban 5 MG TAB PO SCH (09:16)
[2020-08-25] MEDS ORDERED: Bisacodyl 5 MG TAB PO PRN (09:56)
[2020-08-25] MEDS ORDERED: Senokot 8.6 MG TAB PO PRN (09:56)
[2020-08-25] MEDS ORDERED: Bisacodyl 5 MG TAB PO SCH (10:00)
[2020-08-25 10:12] LABS: #Basophils 0.1 thou/uL (0.0-0.2); #Eosinphils 0.1 thou/uL (0.0-0.7); #Lymphocytes 2.4 thou/uL (1.20-3.40); #Monocytes 1.9 thou/uL (0.11-0.59); #Neutrophils 14.5 thou/uL (1.40-6.50); %Basophils 0.7 % (0.0-1.0); %Eosinophils 0.7 % (0.0-10.0); %Lymphocytes 12.7 % (21.0-51.0); Hemoglobin 13.4 g/dL (14.0-18.0); Mean Corpuscular HGB CONC 33.6 g/dL (32.0-36.0); Mean Corpuscular Hemoglobin 30.9 pg (27.0-31.0); Mean Corpuscular Volume 91.9 fL (78.0-98.0); Mean Platelet Volume 8.5 fL (7.4-10.4); Platelet Count 373 thou/uL (130-400); RBC Distribution Width 10.9 % (11.5-14.5); Red Blood Cell (RBC) Count 4.33 mill/uL (4.70-6.10)
[2020-08-25 10:35] LABS: ALT (SGPT) 98 U/L (8-55); AST (SGOT) 199 U/L (5-34); Albumin 3.6 g/dL (3.5-5.0); Alkaline Phosphatase 131 U/L (40-110); Anion Gap 16 mmol/L (10-20); BUN (Urea Nitrogen) 16 mg/dL (8.9-20.6); Bilirubin, Total 1.2 mg/dL (0.2-1.2); Calc. Creatinine Clearance 138 mL/min (70-130); Calcium 9.1 mg/dL (7.8-10.44); Carbon Dioxide 25 mmol/L (22-29); Chloride 95 mmol/L (98-107); Globulin 4.2 g/dL (2.4-3.5); Glucose 109 mg/dL (70-105); Protein, Total 7.8 g/dL (6.0-8.3); Sodium 132 mmol/L (136-145)
[2020-08-25] MEDS ORDERED: Gabapentin 300 MG CAP PO SCH ×2 (11:15→21:00)
[2020-08-25] MEDS: Fentanyl 100 MCG/2 ML VIAL SLOW IVP PRN (14:59)
[2020-08-25 15:48] VITALS: BP 130/95; TEMP 99.7
--- NOTE | 2020-08-27 22:36 | EKG ---
Test Reason : Blood Pressure : / mmHG Vent. Rate : 114 BPM Atrial Rate : 114 BPM P-R Int : 124 ms QRS Dur : 068 ms QT Int : 324 ms P-R-T Axes : 070 045 009 degrees QTc Int : 446 ms Sinus tachycardia Otherwise normal ECG No previous ECGs available Confirmed by González FLORES ([id number]) on 08/27/2020 10:36:13 PM Referred By: RIVERA Confirmed By:González FLORES
--- NOTE | 2020-08-28 13:31 | DIS ---
DATE OF ADMISSION: 08/19/2020 DATE OF DISCHARGE: 08/25/2020 PRINCIPAL DIAGNOSIS: Hypercoagulable syndrome with ischemic left foot. SECONDARY DIAGNOSES: Previous left hemispheric stroke. PROCEDURES PERFORMED: Left iliofemoral thrombectomy, selective left posterior tibial thrombectomy with patch angioplasty and left lower extremity four-compartment fasciotomy on 08/19/2020, redo left posterior tibial thrombectomy on 08/19/2020, left below-knee amputation on 08/21/2020. HISTORY OF PRESENT ILLNESS AND HOSPITAL COURSE: The patient is a 40-year-old man, who several years ago suffered a left hemispheric stroke. By his and his family's description, this was due to "a lot of clots." He had not been followed by a mechanical test technician and his medical regimen only included aspirin and statin. He presented with a few days of left foot pain and upon presentation, he had easily palpable femoral and popliteal pulses bilaterally as well as pedal pulses on the right side. On the left side, however, there was a temperature demarcation at about the level of the ankle and the foot was dusky. No pulses could be identified either palpably or with a Doppler. CT angiography was performed and in addition to showing occlusion of his tibioperoneal trunk and an intact anterior tibial, he had what appeared to be a laminated thrombus in his distal aorta extending into his left iliac system in some views of apparently almost completely occluding the iliac in spite of his physical exam indicating palpable pulses at the groin and at the knee. He was taken to the operating room for thrombectomy. Only a scant amount of thrombus could be retrieved, but a dopplerable signal in his posterior tibial could be established and the color of the foot seemed to improve. Within an hour or two, however, that Doppler signal in his posterior tibial was lost. He was returned to the operating room, the fasciotomy incision that had been used for the posterior tibial exposure as well as the lateral leg incision for the anterolateral compartments, decompression were opened. He had a palpable pulse in the anterior tibial within that wound. The posterior tibial was palpable, but had a rather percussive quality to it when interrogated with the Doppler. The patch was taken down and a Maria Del Carmen catheter was again passed. Scant if any thrombus could be extracted even though the Maria Del Carmen catheter could be passed well beyond the medial malleolus into the foot. The pulse was re-established, but it still was a rather percussive quality to it and again within a brief period of time, he lost that pulse. His foot was obviously nonviable and further attempts at thrombectomy were bypassed as deemed futile. He underwent a left below-knee amputation initially with significant improvement in his pain. He complained of increasing amounts of pain the following day, but upon taking down his dressing, his stump looks normal. He had no further significant issues with inordinate pain or fever and he was transferred to the rehabilitation unit. Job ID: [id number]
== END 2020-08-25 19:05 | DRG 240 ==
LOC: ERS 12:40 → SDC 15:02 → CCU 21:56 → SJJU 08-20 11:34
PROVIDERS: ADMIT Thoracic Surgery (Cardiothoracic Vascular Surgery); ATTEND Thoracic Surgery (Cardiothoracic Vascular Surgery)
PROC: 04CS0ZZ Extirpation of Matter from Left Posterior Tibial Artery, Open Approach (ICD-10-PCS; 2020-08-19)
PROC: 04CL0ZZ Extirpation of Matter from Left Femoral Artery, Open Approach (ICD-10-PCS; 2020-08-19)
PROC: 04U Lower Arteries, Supplement (ICD-10-PCS; 2020-08-19)
PROC: 0KNT0ZZ Release Left Lower Leg Muscle, Open Approach (ICD-10-PCS; 2020-08-19)
PROC: 0KNT0ZZ Release Left Lower Leg Muscle, Open Approach (ICD-10-PCS; 2020-08-19)
PROC: 0KNT0ZZ Release Left Lower Leg Muscle, Open Approach (ICD-10-PCS; 2020-08-19)
PROC: 0KNT0ZZ Release Left Lower Leg Muscle, Open Approach (ICD-10-PCS; 2020-08-19)
PROC: 04CS0ZZ Extirpation of Matter from Left Posterior Tibial Artery, Open Approach (ICD-10-PCS; 2020-08-19)
PROC: 0Y6J0Z1 Detachment at Left Lower Leg, High, Open Approach (ICD-10-PCS; principal; 2020-08-21)
DX: I74.3 Embolism and thrombosis of arteries of the lower extremities (principal); T79.A22A Traumatic compartment syndrome of left lower extremity, initial encounter; D68.59 Other primary thrombophilia; I69.351 Hemiplegia and hemiparesis following cerebral infarction affecting right dominant side; Z20.822 Contact with and (suspected) exposure to COVID-19; Z23 Encounter for immunization; I70.222 Atherosclerosis of native arteries of extremities with rest pain, left leg; J45.909 Unspecified asthma, uncomplicated; F32.9 Major depressive disorder, single episode, unspecified; X58.XXXA Exposure to other specified factors, initial encounter; R00.0 Tachycardia, unspecified; I69.320 Aphasia following cerebral infarction; I69.322 Dysarthria following cerebral infarction; Z88.0 Allergy status to penicillin; Z79.899 Other long term (current) drug therapy; Z79.82 Long term (current) use of aspirin
CPT/HCPCS: 36415; 71045; 75635; 80048; 80053; 80061; 81003; 81015; 83090; 84443; 85025; 85240; 85300; 85303; 85305; 85307; 85379; 85598; 85610; 85730; 86147; 88304; 88307; 90471; 90732; 93005; 93010; G0009; J1100; J1644; J1885; J2175; J2405; J2704; J2720; J2765; J3010; Q9967

== ENCOUNTER 2020-08-27 20:06 | Inpatient (IN) | payer MEDICARE ==
[2020-08-27] MEDS ORDERED: Morphine 4 MG/ML VIAL ONE ×2 (20:19→20:29)
[2020-08-27] MEDS ORDERED: Ondansetron PF 4 MG/2 ML Vial ONE (20:19)
[2020-08-27 20:49] LABS: #Eosinphils 0.1 thou/uL (0.0-0.7); #Lymphocytes 1.9 thou/uL (1.20-3.40); #Monocytes 1.8 thou/uL (0.11-0.59); #Neutrophils 8.8 thou/uL (1.40-6.50); %Basophils 0.2 % (0.0-1.0); %Eosinophils 0.8 % (0.0-10.0); %Lymphocytes 15.1 % (21.0-51.0); %Monocytes 14.6 % (0.0-10.0); %Neutrophils 69.4 % (42.0-75.0); Hemoglobin 8.9 g/dL (14.0-18.0); Mean Corpuscular HGB CONC 34.5 g/dL (32.0-36.0); Mean Corpuscular Hemoglobin 31.5 pg (27.0-31.0); Mean Corpuscular Volume 91.3 fL (78.0-98.0); Mean Platelet Volume 7.4 fL (7.4-10.4); Platelet Count 367 thou/uL (130-400); Red Blood Cell (RBC) Count 2.82 mill/uL (4.70-6.10); White Blood Cell (WBC) Count 12.6 thou/uL (4.8-10.8)
[2020-08-27 20:56] LABS: INR-International Normal Ratio 1.2; Prothrombin Time 15.3 sec (12.0-14.7)
[2020-08-27 20:57] LABS: PTT 61.3 sec (22.9-36.1)
--- NOTE | 2020-08-27 20:58 | RAD ---
Exam: XR Tib Fib Lt Leg 2 View HISTORY: Pain at surgical site. Patient is post [id number] amputation on 08/21/2020. COMPARISON: None FINDINGS: There is evidence of [id number] amputation at the level of the most proximal diaphysis left tibia and fibula. Subcutaneous soft tissue swelling and emphysema is seen involving the stump. Findings may be postoperative in origin, infection would be difficult to entirely exclude. Surgical clips are seen overlying the remaining distal left lower extremity. No other findings. IMPRESSION: [id number]-[id number] left lower extremity amputation with subcutaneous edema and emphysema involving the st ump of the left lower extremity. These findings may be postoperative in origin; however, developing infection could not be excluded.
[2020-08-27] MEDS ORDERED: Clindamycin/D5W 900 mg/50 ml Premix Bag ONE (21:00)
[2020-08-27 21:09] LABS: ALT (SGPT) 154 U/L (8-55); AST (SGOT) 197 U/L (5-34); Albumin 3.1 g/dL (3.5-5.0); Alkaline Phosphatase 289 U/L (40-110); Anion Gap 16 mmol/L (10-20); BUN (Urea Nitrogen) 9 mg/dL (8.9-20.6); Bilirubin, Total 0.8 mg/dL (0.2-1.2); Calc. Creatinine Clearance 0 mL/min (70-130); Calcium 8.1 mg/dL (7.8-10.44); Carbon Dioxide 17 mmol/L (22-29); Chloride 103 mmol/L (98-107); Globulin 3.5 g/dL (2.4-3.5); Glucose 113 mg/dL (70-105); Potassium 3.8 mmol/L (3.5-5.1); Protein, Total 6.6 g/dL (6.0-8.3); Sodium 132 mmol/L (136-145)
[2020-08-27] MEDS ORDERED: Ketorolac Tromethamine 30 MG/ML VIAL ONE (21:26)
[2020-08-27] MEDS ORDERED: Cefepime 2 GM VIAL ONE (21:26)
[2020-08-27 21:55] LABS: Bacteria/HPF Rare-Few HPF (None Seen); Bilirubin Negative (Negative); Blood, Urine 1+ (Negative); Clarity Clear (Clear); Glucose, Urine (Dipstick) Normal (Negative); Ketone, Urine Negative (Negative); Leukocyte Negative Leu/uL (Negative); Nitrite Negative (Negative); Protein, Urine (Dipstick) 20 mg/dL (Neg-Trace); RBC/HPF 0-3 HPF (0-3); Squamous Epithelial None Seen HPF (0-3); Urobilinogen Normal mg/dL (Less than 2); WBC/HPF 0-3 HPF (0-3)
[2020-08-27] MEDS ORDERED: Vancomycin 1.5 GRAM/300 ML BAG 1.5 GM in Premix Bag 1 BAG IVPB SCH (22:30)
[2020-08-27] MEDS ORDERED: Cefepime 2 GM in Sodium Chloride 0.9% 100 ML IVPB SCH (23:31)
[2020-08-27] MEDS ORDERED: Ondansetron ODT 4 MG TAB PO PRN (23:33)
--- NOTE | 2020-08-27 23:36 | PDOC.HHP ---
Hospitalist HPI - History of Present Illness Infected amputated stump History of Present Illness: This is a 40-year-old male patient with a history of hypercoagulable syndrome, CVA with residual right-sided weakness. Patient was admitted a little over a week ago on account of arterial occlusion on his left lower extremity and had a failed thrombectomy. Eventually had below-knee amputation on 08/21/2020 and was transferred to rehab at [facility]. He was discharged on 08/25/2020. For the past 3 days he is noted worsening pain in the region of the stump with drainage concerning for wound dehiscence and possible infection. Pain was managed on Dilaudid and oxycodone. He was also receiving Levaquin and vancomycin. At presentation his blood pressure was 148/96, pulse 122, respiratory 1824 and temperature 98.7. He was saturating at 96 on room air. His labs showed a leukocytosis of 12.6, hemoglobin 8.9, platelets 367 he also had a mild thrombocytopenia of 132, creatinine was 0.76. X-ray of his BKA region revealed left lower extremity amputation with subcutaneous edema and emphysema involving the stump of the left lower extremity. It was noted that this could be postoperative in origin however could also be developing infection. He was started on vancomycin and clindamycin on arrival. Hospitalist team consulted to admit Hospitalist ROS - Review of Systems Constitutional: reports: malaise. denies: fever, chills, sweats, weakness Respiratory: denies: cough, shortness of breath, hemoptysis, SOB with excertion Cardiovascular: denies: chest pain, palpitations, orthopnea, paroxysmal noc. dyspnea Genitourinary: denies: dysuria, frequency, incontinence, hematuria Musculoskeletal: reports: leg pain. denies: neck pain, shoulder pain, arm pain Neurological: reports: weakness (Residual left-sided weakness) - Medication Medications: Active Medications Generic Name Dose Route Start Last Admin Trade Name Freq PRN Reason Stop Dose Admin Vancomycin HCl 1.5 gm/ Device 300 mls @ 200 mls/hr 08/27/20 22:30 08/27/20 23:18 IVPB 08/27/20 23:59 300 mls NOW YURY Administration Hospitalist History - Past Medical History Other Medical History: Stroke, hypercoagulable state. - Past Surgical History Other Surgical History: BKA, - Family History Family History: reports: no pertinent history - Social History Smoking Status: Never smoker Alcohol: reports: None Living Situation: With Family - Exam General Appearance: awake alert General - other findings: In severe distress due to pain. Eye: PERRL, anicteric sclera ENT: normocephalic atraumatic Neck: supple, symmetric, no JVD Heart: RRR, no murmur, no gallops, no rubs Respiratory: CTAB, no wheezes, no rales, no ronchi Gastrointestinal: soft, non-tender, non-distended, normal bowel sounds Extremities: no cyanosis, no clubbing, no edema Neurological: cranial nerve grossly intact (As discussed), hemiplegia (Left side) Psychiatric: A&O x 3 Psychiatric - other findings: Distress due to pain. Hospitalist Results - Labs Result Diagrams: 08/28/20 04:02 08/28/20 04:02 Lab results: WBC 12.6 thou/uL (4.8-10.8) H 08/27/20 20:39 Hgb 8.9 g/dL (14.0-18.0) L 08/27/20 20:39 Hct 25.7 % (42.0-52.0) L 08/27/20 20:39 MCV 91.3 fL (78.0-98.0) 08/27/20 20:39 Plt Count 367 thou/uL (130-400) 08/27/20 20:39 Neutrophils % 69.4 % (42.0-75.0) 08/27/20 20:39 Sodium 132 mmol/L (136-145) L 08/27/20 20:39 Potassium 3.8 mmol/L (3.5-5.1) 08/27/20 20:39 Chloride 103 mmol/L (98-107) 08/27/20 20:39 Carbon Dioxide 17 mmol/L (22-29) L 08/27/20 20:39 BUN 9 mg/dL (8.9-20.6) 08/27/20 20:39 Creatinine 0.76 mg/dL (0.7-1.3) 08/27/20 20:39 Glucose 113 mg/dL (70-105) H 08/27/20 20:39 Lactic Acid 1.6 mmol/L (0.5-2.2) 08/27/20 20:39 Calcium 8.1 mg/dL (7.8-10.44) 08/27/20 20:39 Total Bilirubin 0.8 mg/dL (0.2-1.2) 08/27/20 20:39 AST 197 U/L (5-34) H 08/27/20 20:39 ALT 154 U/L (8-55) H 08/27/20 20:39 Alkaline Phosphatase 289 U/L (40-110) H 08/27/20 20:39 Serum Total Protein 6.6 g/dL (6.0-8.3) 08/27/20 20:39 Albumin 3.1 g/dL (3.5-5.0) L 08/27/20 20:39 Urine Ketones Negative mg/dL (Negative) 08/27/20 21:10 Urine Blood 1+ (Negative) A 08/27/20 21:10 Urine Nitrite Negative (Negative) 08/27/20 21:10 Ur Leukocyte Esterase Negative Denia/uL (Negative) 08/27/20 21:10 Urine RBC 0-3 HPF (0-3) 08/27/20 21:10 Urine WBC 0-3 HPF (0-3) 08/27/20 21:10 Ur Squamous Epith Cells None Seen HPF (0-3) 08/27/20 21:10 Urine Bacteria Rare-Few HPF (None Seen) 08/27/20 21:10 Hospitalist H&P A/P - Plan Plan: This is a 40-year-old male patient with a history of stroke, hypercoagulable state with recent 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 He is back here, sent from his rehab center on account of concerns for stump infection. Infection of BKA stump. Status post recent surgery Was on Vanco Levaquin We will continue on Vanco and meropenem Was also on clindamycinwe will continue ID input in a.m. BKA Consult surgery to evaluate wound. Anemia Hemoglobin 8.9 Likely postop anemia Follow-up CBC History of stroke Continue home medications. Hypercoagulable state VT prophylaxisLovenox CODE STATUSfull code
[2020-08-28] MEDS: Sodium Chloride 0.9% 1,000 ML IV SCH ×2 (01:10→09:35)
[2020-08-28] MEDS: MEROPENEM 1 GM/50 ML 1 GM in Premix Bag 1 BAG IVPB SCH ×3 (02:40→18:43)
[2020-08-28] MEDS ORDERED: Clindamycin/D5W 900 mg/50 ml Premix Bag ONE (04:28)
[2020-08-28 04:34] LABS: SARS-CoV-2 MS2 Positive; SARS-CoV-2 N Gene Negative; SARS-CoV-2 S Gene Negative; SARS-CoV-2 by NAA Not Detected (NotDetected); SARS-CoV-2 orf1ab Negative
[2020-08-28 04:37] LABS: #Basophils 0.1 thou/uL (0.0-0.2); #Eosinphils 0.1 thou/uL (0.0-0.7); #Lymphocytes 1.5 thou/uL (1.20-3.40); #Monocytes 1.7 thou/uL (0.11-0.59); #Neutrophils 8.3 thou/uL (1.40-6.50); %Basophils 0.5 % (0.0-1.0); %Eosinophils 0.9 % (0.0-10.0); %Lymphocytes 12.7 % (21.0-51.0); %Monocytes 14.8 % (0.0-10.0); %Neutrophils 71.1 % (42.0-75.0); Hemoglobin 9.7 g/dL (14.0-18.0); Mean Corpuscular HGB CONC 32.7 g/dL (32.0-36.0); Mean Corpuscular Hemoglobin 30.2 pg (27.0-31.0); Mean Corpuscular Volume 92.3 fL (78.0-98.0); Mean Platelet Volume 7.6 fL (7.4-10.4); Platelet Count 307 thou/uL (130-400); RBC Distribution Width 10.9 % (11.5-14.5); Red Blood Cell (RBC) Count 3.21 mill/uL (4.70-6.10); White Blood Cell (WBC) Count 11.7 thou/uL (4.8-10.8)
[2020-08-28 04:45] LABS: Anion Gap 14 mmol/L (10-20); BUN (Urea Nitrogen) 11 mg/dL (8.9-20.6); Calc. Creatinine Clearance 0 mL/min (70-130); Calcium 7.8 mg/dL (7.8-10.44); Carbon Dioxide 21 mmol/L (22-29); Chloride 106 mmol/L (98-107); Glucose 108 mg/dL (70-105); Sodium 137 mmol/L (136-145)
[2020-08-28] MEDS ORDERED: Clindamycin/D5W 900 MG in Premix Bag 1 BAG IVPB SCH (05:00)
[2020-08-28] MEDS ORDERED: Acetaminophen 325 MG TAB ONE (06:32)
[2020-08-28] MEDS: Acetaminophen 325 MG TAB PO PRN (06:38)
[2020-08-28 07:52] VITALS: BMI 31.3
[2020-08-28] MEDS ORDERED: Enoxaparin Sodium 40 MG/0.4 ML SYRINGE SC SCH (09:00)
[2020-08-28] MEDS ORDERED: Enoxaparin Sodium 40 MG/0.4 ML SYRINGE ONE ×2 (09:07→09:29)
--- NOTE | 2020-08-28 09:29 | PDOC.HOSPP ---
- Subjective Encounter Date: 08/28/20 Encounter Time: 13:00 Subjective: Patient with improvement in pain in LLE BKA stump. Hungry and asking to eat. States that Dr. Teran saw him earlier today and decided no need for surgery. - Objective Vital Signs & Weight: Vital Signs (12 hours) Temp Pulse Resp BP 08/28/20 06:38 101.6 F H 103 H 18 117/79 Weight Weight 188 lb 4.396 oz Result Diagrams: 08/28/20 04:02 08/28/20 04:02 Hospitalist ROS - Review of Systems Constitutional: denies: fever, chills Respiratory: denies: cough, shortness of breath Cardiovascular: denies: chest pain, palpitations Gastrointestinal: denies: nausea, vomiting, abdominal pain Musculoskeletal: reports: leg pain - Medication Medications: Active Medications Generic Name Dose Route Start Last Admin Trade Name Freq PRN Reason Stop Dose Admin Acetaminophen 650 mg 08/27/20 23:33 08/28/20 06:38 Acetaminophen 325 Mg Tab PO 650 mg Q4H PRN Administration Headache/Fever/Mild Pain (1-3) Sodium Chloride 1,000 mls @ 100 mls/hr 08/27/20 22:30 08/28/20 01:10 Normal Saline 0.9% IV 08/28/20 09:31 1,000 mls .Q10H YURY Administration Clindamycin Phosphate/Dextrose 50 mls @ 100 mls/hr 08/28/20 05:00 08/28/20 04:45 900 mg/ Device IVPB 08/28/20 09:31 50 mls 0500,1300,2100 YURY Administration Meropenem 1 gm/ Device 50 mls @ 200 mls/hr 08/28/20 01:00 08/28/20 02:40 IVPB 50 mls 0100,0900,1700 YURY Administration - Exam General Appearance: NAD, awake alert ENT: moist mucosa Heart: RRR, no murmur, no gallops, no rubs Respiratory: CTAB, no wheezes, no rales, no ronchi Gastrointestinal: soft, non-tender, non-distended, normal bowel sounds Extremities - other findings: LLE BKA wound with pus drainage and cellulitis on the anterior side Neurological: speech deficit (chronic) Psychiatric: normal affect, normal behavior, A&O x 3 Hosp A/P - Plan This is a 40-year-old male patient with a history of stroke, hypercoagulable state with recent 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 He is back here, sent from his rehab center on account of concerns for stump infection. Postop BKA Cellulitis. Status post recent surgery Was on Vanco Levaquin We will continue on Vanco and meropenem Was also on clindamycinwe will continue ID input in a.m. Dr. Teran following. BKA Dr. Teran following, no surgical I&D needed at this point. Anemia Hemoglobin 8.9 Likely postop anemia Follow-up CBC History of stroke Continue home medications- asa and Eliquis restarted Hypercoagulable state VT prophylaxisEliquis CODE STATUSfull code
[2020-08-28] MEDS ORDERED: Morphine 2 MG/ML VIAL ONE (11:06)
[2020-08-28] MEDS: Morphine 2 MG/ML VIAL SLOW IVP PRN ×2 (11:12→20:54)
[2020-08-28] MEDS: Vancomycin HCl 1.25 GM in Sodium Chloride 0.9% 250 ML 250 ML IVPB SCH ×2 (11:13→20:53)
[2020-08-28] MEDS ORDERED: Aspirin 81 mg Enteric Coated Tablet PO SCH (13:30)
[2020-08-28] MEDS ORDERED: Aspirin Chewable 81 MG TAB ONE (14:25)
[2020-08-28] MEDS ORDERED: HYDROcodone/Acetaminophen 5/325 mg Tablet ONE (14:28)
[2020-08-28] MEDS: HYDROcodone/Acetaminophen 5/325 mg Tablet PO PRN (14:29)
--- NOTE | 2020-08-28 17:56 | CON ---
DATE OF CONSULTATION: 08/28/2020 REASON FOR CONSULTATION: Inflammatory changes, left BKA amputation site. HISTORY OF PRESENT ILLNESS: A 40-year-old with some not very well specified hypercoagulability disorder what has led to CVA with a right-sided dense hemiplegia and arterial thrombosis with loss of the left lower extremity at the BKA level after failed attempt at revascularization. The procedure was carried out recently on August 21 and after that, the patient was transferred to [facility] and discharged on September 04. He has developed worsening pain in the left BKA stump. He was given Levaquin and vancomycin there, but on arrival, his pulse was 122 and temperature was 98.7. His white cell count is 12.6, hemoglobin 8.9, platelets 367. Creatinine 0.76 with x-ray of the BKA region showed subcutaneous edema and emphysema. Currently, Mr. Pruitt is in the ER hold area. He is awake and alert. Does not appear in distress unless the BKA is touched. It is very difficult to communicate with him because of severe expressive dysphasia. PAST MEDICAL HISTORY: Includes some form of hypercoagulability, not yet specified, prior CVA, left hemispheric with dense right hemiplegia and thrombosis of the right lower extremity arterial supply which failed attempt at revascularization which culminated in a left BKA amputation. No family history of significance. SOCIAL HISTORY: Never smoker. Had been living with family. PHYSICAL EXAMINATION: VITAL SIGNS: Temperature 101.6, blood pressure 117/79, heart rate 103, respiratory rate 18. SKIN: Shows the area of the BKA with swelling, erythema, and blistering. He did not let me remove the dressing because of severe pain. I do not have a photo from the area yet. He has a peripheral IV access. He has no lymphadenopathy. HEENT: Ocular movements conjugate. Oral cavity with still a few missing teeth. Remainder ones with some decay. NECK: Supple, no jugular vein distention. LUNGS: Symmetric, clear breath sounds. HEART: S1, S2. Regular rate. No S3 or S4. ABDOMEN: Soft, not distended or tender. No ascites. No bladder distention. EXTREMITIES: He has a dense right hemiplegia. He is able to move left upper extremity. The left BKA is very tender at the amputation site and again I could not examine the site because of pain. NEUROLOGIC: He is awake, but communication is very difficult because of the expressive dysphasia. LABORATORY DATA: White cell count is 12.6 and now is 11.7, hemoglobin 9.7, platelets 307 with 71% neutrophils. INR 1.2. Sodium 137, creatinine 0.72. AST 197, ALT 154, alkaline phosphatase 289, albumin 3.1. Urinalysis was essentially normal. SARS-CoV2 was not detected. IMAGING DATA: There is the imaging of the tibia-fibula x-ray which showed amputation of the left below-knee level with subcutaneous edema and emphysema. The chest x-ray did not show any abnormalities of significance. ASSESSMENT: Hypercoagulability of unclear etiology with loss of left limb at the BKA level, now with disruption and inflammatory changes at the BKA amputation site. This could be secondary to still persistent poor vascular supply to the stump or infection or both. DISCUSSION: The patient probably will need surgical revision. In the meantime, we will continue antimicrobial therapy with the current regimen. He may have to be revised to an AKA level amputation. He is currently on Eliquis. Job ID: [id number] [facility]
[2020-08-28] MEDS ORDERED: Apixaban 5 MG TAB PO SCH (21:00)
[2020-08-29] MEDS: Morphine 2 MG/ML VIAL SLOW IVP PRN ×4 (02:01→14:55)
[2020-08-29] MEDS: MEROPENEM 1 GM/50 ML 1 GM in Premix Bag 1 BAG IVPB SCH (02:05)
[2020-08-29] MEDS: Vancomycin HCl 1.25 GM in Sodium Chloride 0.9% 250 ML 250 ML IVPB SCH ×2 (03:25→11:51)
[2020-08-29] MEDS: Meropenem 1 GM in Sodium Chloride 0.9% 100 ML IVPB SCH ×2 (11:04→20:49)
[2020-08-29] MEDS: Aspirin 81 mg Enteric Coated Tablet PO SCH (11:04)
[2020-08-29 11:21] LABS: Vancomycin, Trough 8.7 ug/mL
[2020-08-29] MEDS: Vancomycin 1.5 GRAM/300 ML BAG 1.5 GM in Premix Bag 1 BAG IVPB SCH ×2 (12:42→23:18)
--- NOTE | 2020-08-29 13:09 | PDOC.HOSPP ---
- Subjective Encounter Date: 08/29/20 Subjective: Continues to have pain. - Objective Vital Signs & Weight: Vital Signs (12 hours) Temp Pulse Resp BP Pulse Ox 08/29/20 11:40 98.6 F 98 16 139/81 98 08/29/20 07:48 97.9 F 85 16 120/74 100 08/29/20 04:11 100.8 F H 98 18 125/75 98 Weight Weight 188 lb 4.396 oz I&O: 08/28/20 08/29/20 08/30/20 06:59 06:59 06:59 Intake Total 534 Output Total 1425 Balance -891 Result Diagrams: 08/28/20 04:02 08/28/20 04:02 Hospitalist ROS - Medication Medications: Active Medications Generic Name Dose Route Start Last Admin Trade Name Freq PRN Reason Stop Dose Admin Acetaminophen 650 mg 08/27/20 23:33 08/28/20 06:38 Acetaminophen 325 Mg Tab PO 650 mg Q4H PRN Administration Headache/Fever/Mild Pain (1-3) Hydrocodone Bitart/Acetaminophen 1 tab 08/27/20 23:33 08/28/20 14:29 Hydrocodone/Acetaminophen 5/325 Mg Tablet PO 1 tab Q4H PRN Administration Moderate Pain (4-6) Aspirin 81 mg 08/29/20 09:00 08/29/20 11:04 Aspirin 81 Mg Enteric Coated Tablet PO 81 mg DAILY YURY Administration Meropenem 1 gm/ Sodium 100 mls @ 200 mls/hr 08/29/20 09:00 08/29/20 11:04 Chloride IVPB 100 mls 0100,0900,1700 YURY Administration Vancomycin HCl 1.5 gm/ Device 300 mls @ 200 mls/hr 08/29/20 12:00 08/29/20 12:42 IVPB 300 mls 0400,1200,2000 YURY Administration Morphine Sulfate 2 mg 08/27/20 23:34 08/29/20 12:42 Morphine 2 Mg/Ml Vial SLOW IVP 2 mg Q2H PRN Administration Pain - Exam Eye: PERRL ENT: normocephalic atraumatic Neck: supple, symmetric Heart: RRR, no murmur Respiratory: CTAB, no wheezes, no rales Gastrointestinal: soft, non-tender, non-distended Neurological: cranial nerve grossly intact Hosp A/P (1) BKA stump complication Code(s): T87.9 - UNSPECIFIED COMPLICATIONS OF AMPUTATION STUMP Status: Acute (2) Thrombosis of artery of right lower extremity Code(s): I74.3 - EMBOLISM AND THROMBOSIS OF ARTERIES OF THE LOWER EXTREMITIES Status: Acute (3) History of CVA (cerebrovascular accident) Code(s): Z86.73 - PRSNL HX OF TIA (TIA), AND CEREB INFRC W/O RESID DEFICITS Status: Chronic (4) Hypercoagulable state Code(s): D68.59 - OTHER PRIMARY THROMBOPHILIA Status: Chronic - Plan This is a 40-year-old male patient with a history of stroke, hypercoagulable state with recent 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 He is back here, sent from his rehab center on account of concerns for stump infection. Postop BKA Cellulitis. Status post recent surgery Was on Vanco Levaquin We will continue on Vanco and meropenem Was also on clindamycinwe will continue ID consult pending Dr. Teran following. tomorrow will go for I and D Anemia Hemoglobin 8.9 Likely postop anemia Follow-up CBC, will type and screen in am if transfusion is needed. his has been having some bleeding from his stump, his Eliquis and ASA were stopped. History of stroke ASA stopped for now Hypercoagulable state VT prophylaxison Lovenox. CODE STATUSfull code
[2020-08-29] MEDS: HYDROcodone/Acetaminophen 5/325 mg Tablet PO PRN (14:55)
[2020-08-29] MEDS: Acetaminophen 325 MG TAB PO PRN (22:42)
[2020-08-30] MEDS: Meropenem 1 GM in Sodium Chloride 0.9% 100 ML IVPB SCH ×3 (01:28→16:47)
[2020-08-30] MEDS: Vancomycin 1.5 GRAM/300 ML BAG 1.5 GM in Premix Bag 1 BAG IVPB SCH ×3 (03:58→20:49)
[2020-08-30 04:54] LABS: #Eosinphils 0.1 thou/uL (0.0-0.7); #Lymphocytes 1.5 thou/uL (1.20-3.40); #Monocytes 1.8 thou/uL (0.11-0.59); %Basophils 0.1 % (0.0-1.0); %Eosinophils 0.8 % (0.0-10.0); %Lymphocytes 10.1 % (21.0-51.0); %Monocytes 12.3 % (0.0-10.0); %Neutrophils 76.7 % (42.0-75.0); Hemoglobin 10.8 g/dL (14.0-18.0); Mean Corpuscular HGB CONC 33.5 g/dL (32.0-36.0); Mean Corpuscular Hemoglobin 30.3 pg (27.0-31.0); Mean Corpuscular Volume 90.4 fL (78.0-98.0); Mean Platelet Volume 7.4 fL (7.4-10.4); Platelet Count 346 thou/uL (130-400); RBC Distribution Width 11.1 % (11.5-14.5); Red Blood Cell (RBC) Count 3.55 mill/uL (4.70-6.10); White Blood Cell (WBC) Count 14.4 thou/uL (4.8-10.8)
[2020-08-30 05:15] LABS: Anion Gap 15 mmol/L (10-20); BUN (Urea Nitrogen) 10 mg/dL (8.9-20.6); Calc. Creatinine Clearance 165 mL/min (70-130); Calcium 8.5 mg/dL (7.8-10.44); Carbon Dioxide 22 mmol/L (22-29); Chloride 101 mmol/L (98-107); Glucose 119 mg/dL (70-105); Potassium 3.9 mmol/L (3.5-5.1); Sodium 134 mmol/L (136-145)
[2020-08-30] MEDS ORDERED: Fentanyl 100 MCG/2 ML VIAL ONE ×3 (06:40→09:50)
[2020-08-30] MEDS ORDERED: HYDROmorphone 2 MG/ML VIAL ONE (08:33)
[2020-08-30] MEDS ORDERED: Ondansetron PF 4 MG/2 ML Vial ONE (08:49)
[2020-08-30] MEDS ORDERED: PHENYLEPHRINE-NS 100 MCG/ML 10 ML SYRINGE ONE (08:49)
[2020-08-30] MEDS ORDERED: Ketorolac Tromethamine 30 MG/ML VIAL ONE (08:49)
[2020-08-30] MEDS ORDERED: Dexamethasone 20 MG/5 ML VIAL ONE (08:49)
[2020-08-30] MEDS ORDERED: PROPOFOL 200 MG/20 ML VIAL ONE (08:49)
[2020-08-30] MEDS ORDERED: Lidocaine 1% PF 5 ML VIAL ONE (08:49)
[2020-08-30] MEDS ORDERED: Ondansetron HCl/PF 4 MG/2 ML Vial IVP PRN (09:41)
[2020-08-30] MEDS ORDERED: Promethazine HCl 25 MG/ML VIAL SLOW IVP PRN (09:41)
[2020-08-30] MEDS ORDERED: Promethazine HCl 25 MG/ML VIAL IM PRN ×2 (09:41→09:42)
[2020-08-30] MEDS ORDERED: Zolpidem Tartrate 5 MG TAB PO PRN (09:42)
[2020-08-30] MEDS ORDERED: diphenhydrAMINE 50 MG/ML VIAL IM PRN (09:42)
[2020-08-30] MEDS ORDERED: diphenhydrAMINE 50 MG/ML VIAL IVP PRN (09:42)
[2020-08-30] MEDS ORDERED: Ondansetron PF 4 MG/2 ML Vial IVP PRN (09:42)
[2020-08-30] MEDS ORDERED: diphenhydrAMINE 25 MG CAP PO PRN (09:42)
[2020-08-30] MEDS ORDERED: Naloxone HCl 0.4 mg/ml Vial IV PRN (09:42)
[2020-08-30] MEDS ORDERED: Communication Order-Pharmacy FS SCH (09:45)
--- NOTE | 2020-08-30 11:32 | OP ---
DATE OF PROCEDURE: 08/30/2020 PROCEDURE PERFORMED: Left above-knee amputation (revision of left below-knee amputation). PREOPERATIVE DIAGNOSIS: Infected versus ischemic left below-knee amputation stump. POSTOPERATIVE DIAGNOSIS: Ischemic left below-knee amputation stump. ANESTHESIA: General, LMA. INDICATIONS: The patient is a 40-year-old man with a hypercoagulable syndrome, who recently underwent a below-knee amputation after unsuccessful attempts at re-establishing adequate flow to his left foot. Day after transferring to the rehabilitation unit, he developed increasing pain and fever and had serous drainage from his stump. He has returned to the hospital, where he was found to have cellulitic changes in the skin and apparently viable stump. He then developed purulent drainage from the stump. He is now taken to the operating room for debridement. It had been discussed with him, however, that if the tissues appeared viable but infected, the wound would in all likelihood be left open, but if the tissues looked marginally viable, he would require revision to an above-knee amputation. FINDINGS: Ischemic and necrotic muscle at the below-knee level, viable-appearing tissue at the above-knee level. DESCRIPTION OF PROCEDURE: After informed consent was obtained, the patient was taken to the operating room and placed in the supine position on the operating table. After the induction of general anesthesia, the dressing was removed from his stump and since being examined yesterday, he had evolved rather dramatic grayish-dusky discoloration on the pretibial skin as well as the skin of the posterior flap. Several of the skin sutures were removed and purulent material was wiped off, although some of the fat appeared to be granulating deep to the tacking sutures in the fascia. The musculature was pale and slightly grayish. When cut with scissors, it neither twitched nor bled and clearing the below-knee stump was being unsalvageable, that portion of the stump was wrapped with Coban in an attempt to isolate it from the thigh and after prepping down to the proximal edge of the Coban, a sterile stocking net was placed over the stump up just above the knee. The thigh was then draped in sterile fashion. A marking pen was used to trace out lines of incisions with anterior and posterior apices of the [place] incision being about a handbreadth above the knee and the medial and lateral apices being about one handbreadth proximal to that. A scalpel was used to sharply incise the skin along those lines, leaving the posterior line incomplete. The electrocautery was then used to carry that through the subcutaneous tissue. Anteriorly, the incision was carried down to the femur and then medially, it was carried through the musculature to expose the femoral vessels. Femoral vessels were then isolated, ligated, and divided. Periosteal elevator was used to strip the femur and then it was divided with a Gigli saw, angling the line of division superiorly as it passed from posterior to anterior. When the bone had been divided, the posterior flap was completed with an amputation knife. The sciatic nerve was stripped, ligated high and divided and allowed to retract into the posterior musculature. The wound was inspected for hemostasis. The femur was smoothed with a bone rasp and the posterior flap was tailored. The stump was then copiously irrigated and again inspected for hemostasis. A 19-Greek bulb suction drain was brought out through a separate stab incision along the proximal lateral thigh and placed in the wound and interrupted tacking sutures were placed in the fascia to pull the posterior and anterior flaps together over that drain. The drain was then trimmed to length and tucked, that fascial closure was then completed with running Vicryl and then the skin closed with interrupted nylon suture. Telfa darrel were placed between every other suture and the wound was then dressed with bulky dressing and Carlos A wrap. The patient was awakened and extubated in the operating room and taken to the recovery area in stable condition. Job ID: [id number]
[2020-08-30 11:39] LABS: Vancomycin, Trough 15.2 ug/mL
[2020-08-30] MEDS: Aspirin 81 mg Enteric Coated Tablet PO SCH (11:54)
--- NOTE | 2020-08-30 16:44 | PDOC.HOSPP ---
- Subjective Encounter Date: 08/30/20 Subjective: feeling better, he is post-op. - Objective Vital Signs & Weight: Vital Signs (12 hours) Temp Pulse Resp BP Pulse Ox 08/30/20 10:55 98.7 F 87 20 118/80 94 L Weight Admit Weight 188 lb 4.396 oz Weight 188 lb 4.396 oz I&O: 08/29/20 08/30/20 08/31/20 06:59 06:59 06:59 Intake Total 534 2080 Output Total 5644 5980 Balance -891 -770 Result Diagrams: 08/30/20 04:18 08/30/20 04:18 Hospitalist ROS - Medication Medications: Active Medications Generic Name Dose Route Start Last Admin Trade Name Freq PRN Reason Stop Dose Admin Acetaminophen 650 mg 08/27/20 23:33 08/29/20 22:42 Acetaminophen 325 Mg Tab PO 650 mg Q4H PRN Administration Headache/Fever/Mild Pain (1-3) Aspirin 81 mg 08/29/20 09:00 08/30/20 11:54 Aspirin 81 Mg Enteric Coated Tablet PO Not Given DAILY YURY Meropenem 1 gm/ Sodium 100 mls @ 200 mls/hr 08/29/20 09:00 08/30/20 11:54 Chloride IVPB Not Given 0100,0900,1700 YURY Vancomycin HCl 1.5 gm/ Device 300 mls @ 200 mls/hr 08/29/20 12:00 08/30/20 12:39 IVPB 300 mls 0400,1200,2000 YURY Administration - Exam General Appearance: awake alert Eye: PERRL ENT: normocephalic atraumatic Neck: supple, symmetric, no JVD Heart: RRR, no murmur Respiratory: CTAB, no wheezes Gastrointestinal: soft, non-tender Extremities: no cyanosis Hosp A/P (1) BKA stump complication Code(s): T87.9 - UNSPECIFIED COMPLICATIONS OF AMPUTATION STUMP Status: Acute (2) Thrombosis of artery of right lower extremity Code(s): I74.3 - EMBOLISM AND THROMBOSIS OF ARTERIES OF THE LOWER EXTREMITIES Status: Acute (3) History of CVA (cerebrovascular accident) Code(s): Z86.73 - PRSNL HX OF TIA (TIA), AND CEREB INFRC W/O RESID DEFICITS Status: Chronic (4) Hypercoagulable state Code(s): D68.59 - OTHER PRIMARY THROMBOPHILIA Status: Chronic - Plan This is a 40-year-old male patient with a history of stroke, hypercoagulable state with recent 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 He is back here, sent from his rehab center on account of concerns for stump infection. Postop BKA Cellulitis. Status post recent surgery Was on Vanco Levaquin We will continue on Vanco and meropenem Was also on clindamycinwe will continue ID consult pending Dr. Teran following. tomorrow will go for I and D Anemia Hemoglobin 8.9 Likely postop anemia Follow-up CBC, will type and screen in am if transfusion is needed. his has been having some bleeding from his stump, his Eliquis and ASA were stopped. History of stroke ASA stopped for now Hypercoagulable state VT prophylaxison Lovenox. CODE STATUSfull code Plan for today 1/ post revision, he was found to have ischemic and necrotic muscle below knee level, intra-op he was found to have viable appearing tissue at the above the knee level. will recheck labs in am. continue antibiotics.
[2020-08-31] MEDS: Meropenem 1 GM in Sodium Chloride 0.9% 100 ML IVPB SCH ×3 (00:54→18:33)
[2020-08-31] MEDS: Vancomycin 1.5 GRAM/300 ML BAG 1.5 GM in Premix Bag 1 BAG IVPB SCH (03:29)
[2020-08-31 04:29] LABS: #Eosinphils 0.1 thou/uL (0.0-0.7); #Lymphocytes 1.6 thou/uL (1.20-3.40); #Monocytes 1.3 thou/uL (0.11-0.59); #Neutrophils 9.2 thou/uL (1.40-6.50); %Basophils 0.1 % (0.0-1.0); %Eosinophils 0.5 % (0.0-10.0); %Lymphocytes 13.2 % (21.0-51.0); %Monocytes 10.9 % (0.0-10.0); %Neutrophils 75.3 % (42.0-75.0); Hemoglobin 10.2 g/dL (14.0-18.0); Mean Corpuscular HGB CONC 35.2 g/dL (32.0-36.0); Mean Corpuscular Hemoglobin 31.7 pg (27.0-31.0); Mean Corpuscular Volume 89.9 fL (78.0-98.0); Mean Platelet Volume 7.4 fL (7.4-10.4); Platelet Count 352 thou/uL (130-400); RBC Distribution Width 11.2 % (11.5-14.5); Red Blood Cell (RBC) Count 3.22 mill/uL (4.70-6.10); White Blood Cell (WBC) Count 12.2 thou/uL (4.8-10.8)
[2020-08-31 04:55] LABS: Anion Gap 14 mmol/L (10-20); BUN (Urea Nitrogen) 10 mg/dL (8.9-20.6); Calc. Creatinine Clearance 173 mL/min (70-130); Calcium 7.9 mg/dL (7.8-10.44); Carbon Dioxide 22 mmol/L (22-29); Chloride 103 mmol/L (98-107); Glucose 117 mg/dL (70-105); Potassium 3.6 mmol/L (3.5-5.1); Sodium 135 mmol/L (136-145)
[2020-08-31] MEDS: Aspirin 81 mg Enteric Coated Tablet PO SCH (09:06)
[2020-08-31 11:17] LABS: Vancomycin, Trough 13.1 ug/mL
[2020-08-31] MEDS: Vancomycin HCl 1.75 GM in Sodium Chloride 0.9% 500 ML IVPB SCH ×2 (12:25→20:49)
[2020-08-31] MEDS ORDERED: Ketorolac Tromethamine 30 MG/ML VIAL IVP SCH (12:45)
--- NOTE | 2020-08-31 16:27 | PDOC.HOSPP ---
- Subjective Encounter Date: 08/31/20 Subjective: he continues to feel well. - Objective Vital Signs & Weight: Vital Signs (12 hours) Pulse Ox 08/31/20 08:00 98 Weight Admit Weight 188 lb 4.396 oz Weight 188 lb 4.396 oz I&O: 08/30/20 08/31/20 09/01/20 06:59 06:59 06:59 Intake Total 0 2070 Output Total 2850 3070 2600 Balance -770 1000 -2605 Result Diagrams: 08/31/20 03:53 08/31/20 03:53 Hospitalist ROS - Medication Medications: Active Medications Generic Name Dose Route Start Last Admin Trade Name Freq PRN Reason Stop Dose Admin Acetaminophen 650 mg 08/27/20 23:33 08/29/20 22:42 Acetaminophen 325 Mg Tab PO 650 mg Q4H PRN Administration Headache/Fever/Mild Pain (1-3) Aspirin 81 mg 08/29/20 09:00 08/31/20 09:06 Aspirin 81 Mg Enteric Coated Tablet PO 81 mg DAILY YURY Administration Meropenem 1 gm/ Sodium 100 mls @ 200 mls/hr 08/29/20 09:00 08/31/20 09:06 Chloride IVPB 100 mls 0100,0900,1700 YURY Administration Vancomycin HCl 1.75 gm/ Sodium 500 mls @ 250 mls/hr 08/31/20 12:00 08/31/20 12:25 Chloride IVPB 500 mls 0400,1200,2000 YURY Administration Hosp A/P (1) BKA stump complication Code(s): T87.9 - UNSPECIFIED COMPLICATIONS OF AMPUTATION STUMP Status: Acute (2) Thrombosis of artery of right lower extremity Code(s): I74.3 - EMBOLISM AND THROMBOSIS OF ARTERIES OF THE LOWER EXTREMITIES Status: Acute (3) History of CVA (cerebrovascular accident) Code(s): Z86.73 - PRSNL HX OF TIA (TIA), AND CEREB INFRC W/O RESID DEFICITS Status: Chronic (4) Hypercoagulable state Code(s): D68.59 - OTHER PRIMARY THROMBOPHILIA Status: Chronic - Plan This is a 40-year-old male patient with a history of stroke, hypercoagulable state with recent 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 He is back here, sent from his rehab center on account of concerns for stump infection. Postop BKA Cellulitis. Status post recent surgery Was on Vanco Levaquin We will continue on Vanco and meropenem Was also on clindamycinwe will continue ID consult pending Dr. Teran following. tomorrow will go for I and D Anemia Hemoglobin 8.9 Likely postop anemia Follow-up CBC, will type and screen in am if transfusion is needed. his has been having some bleeding from his stump, his Eliquis and ASA were stopped. History of stroke ASA stopped for now Hypercoagulable state VT prophylaxison Lovenox. CODE STATUSfull code Plan for today 08/30 post revision, he was found to have ischemic and necrotic muscle below knee level, intra-op he was found to have viable appearing tissue at the above the knee level. will recheck labs in am. continue antibiotics. Plan for today 08/31 continue doing well. His LFTs were noted to be elevated on recent labs, his mom informed me that he has a history of fatty liver, I reviewed his previous labs and he did have an abdominal ultrasound that showed fatty liver, but this time his LFT were more elevated then before, possibly luigi to his acute disease process, I will recheck them in am, otherwise will continue to follow surgical recommendations.
[2020-08-31] MEDS: Ketorolac Tromethamine 30 MG/ML VIAL IVP SCH (18:34)
[2020-08-31] MEDS: Gabapentin 100 MG CAP PO SCH (20:48)
[2020-09-01] MEDS: Ketorolac Tromethamine 30 MG/ML VIAL IVP SCH ×4 (00:21→17:50)
[2020-09-01] MEDS: Meropenem 1 GM in Sodium Chloride 0.9% 100 ML IVPB SCH ×3 (00:29→17:52)
[2020-09-01 04:36] LABS: #Eosinphils 0.2 thou/uL (0.0-0.7); #Lymphocytes 1.5 thou/uL (1.20-3.40); #Monocytes 1.2 thou/uL (0.11-0.59); #Neutrophils 5.6 thou/uL (1.40-6.50); %Basophils 0.3 % (0.0-1.0); %Eosinophils 2.7 % (0.0-10.0); %Lymphocytes 17.3 % (21.0-51.0); %Monocytes 13.6 % (0.0-10.0); %Neutrophils 66.1 % (42.0-75.0); Hemoglobin 10.1 g/dL (14.0-18.0); Mean Corpuscular HGB CONC 33.5 g/dL (32.0-36.0); Mean Corpuscular Hemoglobin 30.5 pg (27.0-31.0); Mean Corpuscular Volume 91.3 fL (78.0-98.0); Platelet Count 320 thou/uL (130-400); RBC Distribution Width 11.5 % (11.5-14.5); Red Blood Cell (RBC) Count 3.31 mill/uL (4.70-6.10); White Blood Cell (WBC) Count 8.4 thou/uL (4.8-10.8)
[2020-09-01 04:57] LABS: ALT (SGPT) 294 U/L (8-55); AST (SGOT) 143 U/L (5-34); Albumin 2.7 g/dL (3.5-5.0); Alkaline Phosphatase 242 U/L (40-110); Anion Gap 13 mmol/L (10-20); BUN (Urea Nitrogen) 11 mg/dL (8.9-20.6); Bilirubin, Total 0.5 mg/dL (0.2-1.2); Calc. Creatinine Clearance 193 mL/min (70-130); Calcium 7.9 mg/dL (7.8-10.44); Carbon Dioxide 22 mmol/L (22-29); Chloride 106 mmol/L (98-107); Globulin 3.3 g/dL (2.4-3.5); Glucose 102 mg/dL (70-105); Potassium 3.8 mmol/L (3.5-5.1); Sodium 137 mmol/L (136-145)
[2020-09-01] MEDS: Vancomycin HCl 1.75 GM in Sodium Chloride 0.9% 500 ML IVPB SCH ×2 (05:00→12:29)
[2020-09-01] MEDS: Gabapentin 100 MG CAP PO SCH ×2 (08:04→19:58)
[2020-09-01] MEDS: Aspirin 81 mg Enteric Coated Tablet PO SCH (08:04)
[2020-09-01 11:21] LABS: Vancomycin, Trough 26.4 ug/mL
[2020-09-01] MEDS: Vancomycin 1.5 GRAM/300 ML BAG 1.5 GM in Premix Bag 1 BAG IVPB SCH ×2 (12:48→19:58)
[2020-09-01] MEDS: fentaNYL Citrate/PF 2,000 MCG in Sodium Chloride 0.9% 60 ML IV PRN (15:25)
--- NOTE | 2020-09-01 15:50 | PDOC.HOSPP ---
- Subjective Encounter Date: 09/01/20 Encounter Time: 09:00 Subjective: is mobilizing in wheel chair in the room, had shower this am no pain, feels better - Objective Vital Signs & Weight: Vital Signs (12 hours) Temp Pulse Resp BP Pulse Ox 09/01/20 15:31 98 F 83 18 140/81 96 09/01/20 11:00 97.9 F 93 18 127/82 98 09/01/20 07:14 98.2 F 71 16 119/75 98 09/01/20 04:00 98.5 F 80 18 126/81 97 Weight Admit Weight 188 lb 4.396 oz Weight 188 lb 4.396 oz I&O: 08/31/20 09/01/20 09/02/20 06:59 06:59 06:59 Intake Total 2070 1550 Output Total 7285 9947 Balance -1000 -9953 Result Diagrams: 09/01/20 04:18 09/01/20 04:18 Hospitalist ROS - Medication Medications: Active Medications Generic Name Dose Route Start Last Admin Trade Name Freq PRN Reason Stop Dose Admin Acetaminophen 650 mg 08/27/20 23:33 08/29/20 22:42 Acetaminophen 325 Mg Tab PO 650 mg Q4H PRN Administration Headache/Fever/Mild Pain (1-3) Aspirin 81 mg 08/29/20 09:00 09/01/20 08:04 Aspirin 81 Mg Enteric Coated Tablet PO 81 mg DAILY YURY Administration Gabapentin 100 mg 08/31/20 21:00 09/01/20 08:04 Gabapentin 100 Mg Cap PO 100 mg BID YURY Administration Meropenem 1 gm/ Sodium 100 mls @ 200 mls/hr 08/29/20 09:00 09/01/20 08:05 Chloride IVPB 100 mls 0100,0900,1700 YURY Administration Fentanyl Citrate 2,000 mcg/ 100 mls @ 0 mls/hr 08/30/20 09:42 09/01/20 15:25 Sodium Chloride IV 100 mls INF PRN Administration Pain As Directed Vancomycin HCl 1.5 gm/ Device 300 mls @ 200 mls/hr 09/01/20 13:00 09/01/20 12:48 IVPB 300 mls 0500,1300,2100 YURY Administration Ketorolac Tromethamine 30 mg 08/31/20 18:00 09/01/20 11:02 Ketorolac Tromethamine 30 Mg/Ml Vial IVP 09/02/20 12:01 30 mg Q6HR YURY Administration - Exam General Appearance: awake alert Eye: PERRL, anicteric sclera ENT: no oropharyngeal lesions, moist mucosa Neck: supple, no JVD Heart: RRR, no murmur Respiratory: no wheezes, no rales Gastrointestinal: soft, non-tender, non-distended, normal bowel sounds Extremities - other findings: left aka in dressing with sabino drain+ Neurological: cranial nerve grossly intact, no focal deficits Psychiatric: normal affect, A&O x 3 Hosp A/P (1) Status post above-knee amputation of left lower extremity Code(s): Z89.612 - ACQUIRED ABSENCE OF LEFT LEG ABOVE KNEE Status: Acute (2) Elevated LFTs Code(s): R79.89 - OTHER SPECIFIED ABNORMAL FINDINGS OF BLOOD CHEMISTRY Status: Acute (3) History of CVA (cerebrovascular accident) Code(s): Z86.73 - PRSNL HX OF TIA (TIA), AND CEREB INFRC W/O RESID DEFICITS Status: Chronic (4) Hypercoagulable state Code(s): D68.59 - OTHER PRIMARY THROMBOPHILIA Status: Chronic - Plan is s/p left aka for infected bka stump 08/30/20, prior left bka done on 08/21/2020 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 hemostable
[2020-09-02] MEDS: Meropenem 1 GM in Sodium Chloride 0.9% 100 ML IVPB SCH ×2 (00:16→09:22)
[2020-09-02] MEDS: Ketorolac Tromethamine 30 MG/ML VIAL IVP SCH ×3 (00:16→12:53)
[2020-09-02] MEDS: Vancomycin 1.5 GRAM/300 ML BAG 1.5 GM in Premix Bag 1 BAG IVPB SCH ×2 (05:40→12:53)
[2020-09-02] MEDS: Gabapentin 100 MG CAP PO SCH ×2 (09:21→20:55)
[2020-09-02] MEDS: Aspirin 81 mg Enteric Coated Tablet PO SCH (09:21)
[2020-09-02 12:46] LABS: Vancomycin, Trough 19.4 ug/mL
--- NOTE | 2020-09-02 14:34 | PDOC.HOSPP ---
- Subjective Encounter Date: 09/02/20 Encounter Time: 10:30 Subjective: no abd pain or pain at surgical site now feels good - Objective Vital Signs & Weight: Vital Signs (12 hours) Temp Pulse Resp BP Pulse Ox 09/02/20 11:27 98.4 F 82 18 132/82 97 09/02/20 08:00 95 09/02/20 07:05 97.8 F 81 18 137/86 95 09/02/20 04:00 98.2 F 83 16 126/82 98 Weight Admit Weight 188 lb 4.396 oz Weight 188 lb 4.396 oz I&O: 09/01/20 09/02/20 09/03/20 06:59 06:59 06:59 Intake Total 1550 Output Total 3907 2009 [employer] -2356 Result Diagrams: 09/01/20 04:18 09/01/20 04:18 Hospitalist ROS - Medication Medications: Active Medications Generic Name Dose Route Start Last Admin Trade Name Freq PRN Reason Stop Dose Admin Acetaminophen 650 mg 08/27/20 23:33 08/29/20 22:42 Acetaminophen 325 Mg Tab PO 650 mg Q4H PRN Administration Headache/Fever/Mild Pain (1-3) Aspirin 81 mg 08/29/20 09:00 09/02/20 09:21 Aspirin 81 Mg Enteric Coated Tablet PO 81 mg DAILY YURY Administration Gabapentin 100 mg 08/31/20 21:00 09/02/20 09:21 Gabapentin 100 Mg Cap PO 100 mg BID YURY Administration Meropenem 1 gm/ Sodium 100 mls @ 200 mls/hr 08/29/20 09:00 09/02/20 09:22 Chloride IVPB 100 mls 0100,0900,1700 YURY Administration Fentanyl Citrate 2,000 mcg/ 100 mls @ 0 mls/hr 08/30/20 09:42 09/01/20 15:25 Sodium Chloride IV 100 mls INF PRN Administration Pain As Directed Vancomycin HCl 1.5 gm/ Device 300 mls @ 200 mls/hr 09/01/20 13:00 09/02/20 12:53 IVPB 300 mls 0500,1300,2100 YURY Administration - Exam General Appearance: awake alert Eye: PERRL, anicteric sclera ENT: no oropharyngeal lesions, moist mucosa Neck: supple, no JVD Heart: RRR, no murmur Respiratory: no wheezes, no rales Gastrointestinal: soft, non-tender, non-distended, normal bowel sounds Extremities - other findings: left aka in dressing Neurological: cranial nerve grossly intact, no focal deficits Psychiatric: normal affect, A&O x 3 Hosp A/P (1) Status post above-knee amputation of left lower extremity Code(s): Z89.612 - ACQUIRED ABSENCE OF LEFT LEG ABOVE KNEE Status: Acute (2) Elevated LFTs Code(s): R79.89 - OTHER SPECIFIED ABNORMAL FINDINGS OF BLOOD CHEMISTRY Status: Acute (3) History of CVA (cerebrovascular accident) Code(s): Z86.73 - PRSNL HX OF TIA (TIA), AND CEREB INFRC W/O RESID DEFICITS Status: Chronic (4) Hypercoagulable state Code(s): D68.59 - OTHER PRIMARY THROMBOPHILIA Status: Chronic - Plan is s/p left aka for infected bka stump 08/30/20, prior left bka done on 08/21/2020 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 hemostable
[2020-09-03] MEDS: fentaNYL Citrate/PF 2,000 MCG in Sodium Chloride 0.9% 60 ML IV PRN (05:32)
[2020-09-03 05:53] LABS: #Eosinphils 0.2 thou/uL (0.0-0.7); #Lymphocytes 1.6 thou/uL (1.20-3.40); #Neutrophils 8.3 thou/uL (1.40-6.50); %Basophils 0.4 % (0.0-1.0); %Eosinophils 1.4 % (0.0-10.0); %Lymphocytes 14.8 % (21.0-51.0); %Monocytes 8.6 % (0.0-10.0); %Neutrophils 74.8 % (42.0-75.0); Hemoglobin 10.6 g/dL (14.0-18.0); Mean Corpuscular HGB CONC 33.6 g/dL (32.0-36.0); Mean Corpuscular Hemoglobin 29.9 pg (27.0-31.0); Mean Corpuscular Volume 88.9 fL (78.0-98.0); Mean Platelet Volume 7.1 fL (7.4-10.4); Platelet Count 402 thou/uL (130-400); Red Blood Cell (RBC) Count 3.56 mill/uL (4.70-6.10); White Blood Cell (WBC) Count 11.1 thou/uL (4.8-10.8)
[2020-09-03 06:17] LABS: ALT (SGPT) 197 U/L (8-55); AST (SGOT) 61 U/L (5-34); Albumin 3.1 g/dL (3.5-5.0); Alkaline Phosphatase 195 U/L (40-110); Anion Gap 13 mmol/L (10-20); BUN (Urea Nitrogen) 9 mg/dL (8.9-20.6); Bilirubin, Total 0.5 mg/dL (0.2-1.2); Calc. Creatinine Clearance 173 mL/min (70-130); Calcium 8.5 mg/dL (7.8-10.44); Carbon Dioxide 23 mmol/L (22-29); Chloride 104 mmol/L (98-107); Globulin 3.7 g/dL (2.4-3.5); Glucose 104 mg/dL (70-105); Protein, Total 6.8 g/dL (6.0-8.3); Sodium 136 mmol/L (136-145)
[2020-09-03 08:06] VITALS: TEMP 98.6
[2020-09-03] MEDS: Aspirin 81 mg Enteric Coated Tablet PO SCH (08:47)
[2020-09-03] MEDS: Gabapentin 100 MG CAP PO SCH (08:47)
[2020-09-03 12:27] VITALS: BP 148/88
--- NOTE | 2020-09-03 14:10 | PDOC.HOSPP ---
- Subjective Encounter Date: 09/03/20 Encounter Time: 10:15 Subjective: no new complaints, feels good, no pain in his aka area - Objective Vital Signs & Weight: Vital Signs (12 hours) Temp Pulse Resp BP Pulse Ox 09/03/20 12:26 98.6 F 95 18 148/88 H 97 09/03/20 08:44 98 09/03/20 08:00 98.6 F 85 14 132/84 98 09/03/20 04:00 98.1 F 86 16 128/76 98 Weight Admit Weight 188 lb 4.396 oz Weight 188 lb 4.396 oz I&O: 09/02/20 09/03/20 09/04/20 06:59 06:59 06:59 Output Total 2009 3191 [id number] Result Diagrams: 09/03/20 05:26 09/03/20 05:26 Hospitalist ROS - Medication Medications: Active Medications Generic Name Dose Route Start Last Admin Trade Name Freq PRN Reason Stop Dose Admin Acetaminophen 650 mg 08/27/20 23:33 08/29/20 22:42 Acetaminophen 325 Mg Tab PO 650 mg Q4H PRN Administration Headache/Fever/Mild Pain (1-3) Aspirin 81 mg 08/29/20 09:00 09/03/20 08:47 Aspirin 81 Mg Enteric Coated Tablet PO 81 mg DAILY YURY Administration Gabapentin 100 mg 08/31/20 21:00 09/03/20 08:47 Gabapentin 100 Mg Cap PO 100 mg BID YURY Administration Fentanyl Citrate 2,000 mcg/ 100 mls @ 0 mls/hr 08/30/20 09:42 09/03/20 05:32 Sodium Chloride IV 100 mls INF PRN Administration Pain As Directed - Exam General Appearance: awake alert Eye: PERRL, anicteric sclera ENT: no oropharyngeal lesions, moist mucosa Neck: supple, no JVD Heart: RRR, no murmur Respiratory: no wheezes, no rales Gastrointestinal: soft, non-tender, non-distended, normal bowel sounds Extremities: no edema Extremities - other findings: aka in dressing Neurological: cranial nerve grossly intact, no new deficit Hosp A/P (1) Status post above-knee amputation of left lower extremity Code(s): Z89.612 - ACQUIRED ABSENCE OF LEFT LEG ABOVE KNEE Status: Acute (2) Elevated LFTs Code(s): R79.89 - OTHER SPECIFIED ABNORMAL FINDINGS OF BLOOD CHEMISTRY Status: Acute (3) History of CVA (cerebrovascular accident) Code(s): Z86.73 - PRSNL HX OF TIA (TIA), AND CEREB INFRC W/O RESID DEFICITS Status: Chronic (4) Hypercoagulable state Code(s): D68.59 - OTHER PRIMARY THROMBOPHILIA Status: Chronic - Plan is s/p left aka for infected bka stump 08/30/20, prior left bka done on 08/21/2020 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 hemostable dc plan to rehab today
--- NOTE | 2020-09-03 16:20 | DIS ---
DATE OF ADMISSION: 08/27/2020 DATE OF DISCHARGE: 09/03/2020 DISCHARGE DISPOSITION: To inpatient rehab. PRIMARY DISCHARGE DIAGNOSES: The patient is status post left above-knee amputation, revision of left below-knee amputation, done on 08/30/[address] Teran. SECONDARY DISCHARGE DIAGNOSES: 1. History of prior arterial thrombosis with unknown hypercoagulability disorder. 2. Elevated LFTs, likely due to medication. 3. History of prior CVA with right hemiparesis. PROCEDURES DONE DURING HOSPITALIZATION: The patient has had left above-knee amputation with revision of prior left BKA done by Dr. Teran on 08/30/2020. Tibia-fibula x-ray done on 08/27/2020, showed subcutaneous edema and emphysema involving the stump of the left lower extremity BKA. Blood cultures x2, no growth. Urine culture, no growth. Discharge white count of 11, H and H 10 and 31, platelet count 402, MCV is 88. Discharge BUN and creatinine 9 and 0.6. Discharge AST level is 61, discharge ALT 197, discharge alkaline phosphatase 195, total bilirubin 0.5, albumin 3.1 on the day of discharge. COVID-19 PCR was not detected on 08/28/2020. DISCHARGE MEDICATIONS: 1. Aspirin 81 mg p.o. daily. 2. Baclofen 5 mg p.o. 3 times daily. 3. Simvastatin 10 mg p.o. daily. 4. Gabapentin 100 mg p.o. twice daily. ALLERGIES: ALLERGIC TO PENICILLIN. DISCHARGE PLAN: The patient to follow up with Dr. Teran as advised. He needs to follow up with his primary care physician, Dr. Jared Vera, in 1 week. BRIEF COURSE DURING HOSPITALIZATION: The patient initially was sent over from inpatient rehab for suspected infection of left BKA stump. The patient had left BKA done on 08/21/2020 and was transferred to inpatient rehab. Initial x-ray showed gas in the left BKA stump area. Dr. Teran, cardiothoracic surgeon, evaluated the patient. He was taken for left above-knee amputation. Postprocedure, the patient is working with physical therapy for transfers. His histopathology of the amputation site showed viable skin, soft tissue, and bone margins. He remained hemodynamically stable and has been accepted back to inpatient rehab today. He will be shortly discharged back to rehab. A total of 35 minutes was spent on discharge plan. Please see a [id number] documentation for the day of discharge on [employer]. Job ID: [id number]
== END 2020-09-03 16:25 | DRG 474 ==
LOC: ERS 20:06 → EEVIPCON 21:39 → ERHOLD 21:39 → 2NO 08-28 19:01 → SURG A 09-01 16:34
PROVIDERS: ADMIT Student in an Organized Health Care Education/Training Program; ATTEND Internal Medicine
PROC: 0Y6D0Z1 Detachment at Left Upper Leg, High, Open Approach (ICD-10-PCS; principal; 2020-08-30)
DX: T87.44 Infection of amputation stump, left lower extremity (principal); A41.9 Sepsis, unspecified organism; D68.59 Other primary thrombophilia; I69.951 Hemiplegia and hemiparesis following unspecified cerebrovascular disease affecting right dominant side; L03.116 Cellulitis of left lower limb; I74.3 Embolism and thrombosis of arteries of the lower extremities; Z20.822 Contact with and (suspected) exposure to COVID-19; F32.9 Major depressive disorder, single episode, unspecified; J45.909 Unspecified asthma, uncomplicated; D69.6 Thrombocytopenia, unspecified; D64.9 Anemia, unspecified; Y83.8 Other surgical procedures as the cause of abnormal reaction of the patient, or of later complication, without mention of misadventure at the time of the procedure; Z89.612 Acquired absence of left leg above knee; Z79.899 Other long term (current) drug therapy; Z88.0 Allergy status to penicillin
CPT/HCPCS: 36415; 80048; 80053; 80202; 81003; 81015; 83605; 85025; 85610; 85730; 86850; 86900; 86901; 87040; 87070; 87086; 87186; 87205; 87635; 88307; 96365; 96367; 96368; 96375; J0692; J1100; J1170; J1650; J1885; J2185; J2270; J2405; J2704; J3010; J3370; J3490; J7030; J7050; U0003

== ENCOUNTER 2021-01-10 15:13 | Emergency (ER) | payer MEDICARE ==
[2021-01-10 16:40] LABS: #Basophils 0.1 thou/uL (0.0-0.2); #Eosinphils 0.1 thou/uL (0.0-0.7); #Lymphocytes 2.2 thou/uL (1.20-3.40); #Neutrophils 5.7 thou/uL (1.40-6.50); %Eosinophils 1.3 % (0.0-10.0); %Lymphocytes 23.7 % (21.0-51.0); %Monocytes 10.9 % (0.0-10.0); %Neutrophils 63.1 % (42.0-75.0); Hemoglobin 15.5 g/dL (14.0-18.0); Mean Corpuscular HGB CONC 36.1 g/dL (32.0-36.0); Mean Corpuscular Hemoglobin 32.2 pg (27.0-31.0); Mean Corpuscular Volume 89.2 fL (78.0-98.0); Mean Platelet Volume 8.3 fL (7.4-10.4); Platelet Count 261 thou/uL (130-400); Red Blood Cell (RBC) Count 4.82 mill/uL (4.70-6.10); White Blood Cell (WBC) Count 9.1 thou/uL (4.8-10.8)
[2021-01-10 16:58] LABS: ALT (SGPT) 71 U/L (8-55); AST (SGOT) 49 U/L (5-34); Albumin 4.1 g/dL (3.5-5.0); Alkaline Phosphatase 92 U/L (40-110); Anion Gap 12 mmol/L (10-20); BUN (Urea Nitrogen) 15 mg/dL (8.9-20.6); Bilirubin, Total 0.9 mg/dL (0.2-1.2); Calc. Creatinine Clearance 0 mL/min (70-130); Calcium 9.2 mg/dL (7.8-10.44); Carbon Dioxide 23 mmol/L (22-29); Chloride 107 mmol/L (98-107); Globulin 3.2 g/dL (2.4-3.5); Glucose 109 mg/dL (70-105); Protein, Total 7.3 g/dL (6.0-8.3); Sodium 138 mmol/L (136-145)
== END 2021-01-10 18:15 | disposition home or self-care (01) ==
LOC: ERS 15:13
DX: R60.0 Localized edema (principal); L53.9 Erythematous condition, unspecified; J45.909 Unspecified asthma, uncomplicated; Z86.73 Personal history of transient ischemic attack (TIA), and cerebral infarction without residual deficits
CPT/HCPCS: 36415; 71045; 80053; 83880; 84484; 85025; 93005

== ENCOUNTER 2022-05-31 16:30 | Emergency (ER) | payer MEDICARE ==
[2022-05-31] MEDS ORDERED: Morphine 4 MG/ML VIAL ONE ×2 (17:00→20:22)
[2022-05-31] MEDS ORDERED: Morphine 2 MG/ML VIAL ONE ×2 (17:00→20:22)
[2022-05-31 18:27] LABS: #Basophils 0.1 thou/uL (0.0-0.2); #Eosinphils 0.2 thou/uL (0.0-0.7); #Lymphocytes 2.9 thou/uL (1.20-3.40); #Monocytes 0.7 thou/uL (0.11-0.59); #Neutrophils 4.9 thou/uL (1.40-6.50); %Eosinophils 1.9 % (0.0-10.0); %Monocytes 8.1 % (0.0-10.0); %Neutrophils 55.9 % (42.0-75.0); Hemoglobin 16.2 g/dL (14.0-18.0); Mean Corpuscular HGB CONC 34.5 g/dL (32.0-36.0); Mean Corpuscular Hemoglobin 31.6 pg (27.0-31.0); Mean Corpuscular Volume 91.7 fL (78.0-98.0); Mean Platelet Volume 9.1 fL (7.4-10.4); Platelet Count 176 thou/uL (130-400); RBC Distribution Width 11.6 % (11.5-14.5); Red Blood Cell (RBC) Count 5.13 mill/uL (4.70-6.10); White Blood Cell (WBC) Count 8.8 thou/uL (4.8-10.8)
[2022-05-31 18:50] LABS: Prothrombin Time 13.6 sec (12.0-14.7)
[2022-05-31 18:51] LABS: ALT (SGPT) 63 U/L (8-55); AST (SGOT) 52 U/L (5-34); Albumin 4.4 g/dL (3.5-5.0); Alkaline Phosphatase 123 U/L (40-110); Anion Gap 13 mmol/L (10-20); BUN (Urea Nitrogen) 10 mg/dL (8.9-20.6); Bilirubin, Total 1.1 mg/dL (0.2-1.2); Calc. Creatinine Clearance 0 mL/min (70-130); Calcium 9.1 mg/dL (7.8-10.44); Carbon Dioxide 23 mmol/L (22-29); Chloride 108 mmol/L (98-107); Estimated GFR 111; Globulin 3.4 g/dL (2.4-3.5); Glucose 133 mg/dL (70-105); Potassium 3.9 mmol/L (3.5-5.1); Protein, Total 7.8 g/dL (6.0-8.3); Sodium 140 mmol/L (136-145)
== END 2022-05-31 20:55 | disposition home or self-care (01) ==
LOC: ERS 16:30
DX: M79.672 Pain in left foot (principal)
CPT/HCPCS: 80053; 85025; 85610; 93971; 96374; 96376; 99283; J2270; 36415

== ENCOUNTER 2022-06-03 08:41 | Outpatient (CLI) | payer MEDICARE | END 2022-06-03 08:42 | disposition home or self-care (01) | LOC: MRI 08:41 | PROVIDERS: ATTEND Family Medicine | DX: M79.671 Pain in right foot (principal) ==

== ENCOUNTER 2023-06-28 12:53 | Inpatient (IN) | payer MEDICARE ==
[2023-06-28 13:42] LABS: #Eosinphils 0.1 thou/uL (0.0-0.7); #Monocytes 0.8 thou/uL (0.11-0.59); #Neutrophils 5.6 thou/uL (1.40-6.50); %Basophils 0.4 % (0.0-1.0); %Eosinophils 0.9 % (0.0-10.0); %Lymphocytes 20.1 % (21.0-51.0); %Monocytes 9.5 % (0.0-10.0); %Neutrophils 68.7 % (42.0-75.0); Hematocrit 44.9 % (42.0-52.0); Hemoglobin 16.7 g/dL (14.0-18.0); Mean Corpuscular HGB CONC 37.2 g/dL (32.0-36.0); Mean Corpuscular Hemoglobin 31.5 pg (27.0-31.0); Mean Corpuscular Volume 84.6 fl (78.0-98.0); Mean Platelet Volume 11.4 fL (7.4-10.4); Platelet Count 114 10x3/uL (130-400); RBC Distribution Width 11.9 % (11.5-14.5); Red Blood Cell (RBC) Count 5.31 mill/uL (4.70-6.10); White Blood Cell (WBC) Count 8.1 10x3/uL (4.8-10.8)
[2023-06-28 14:02] LABS: ALT (SGPT) 79 U/L (8-55); AST (SGOT) 68 U/L (5-34); Alkaline Phosphatase 90 U/L (40-110); Anion Gap 14 mmol/L (10-20); BUN (Urea Nitrogen) 14 mg/dL (8.9-20.6); Bilirubin, Total 0.9 mg/dL (0.2-1.2); Calc. Creatinine Clearance 0 mL/min (70-130); Calcium 9.8 mg/dL (7.8-10.44); Carbon Dioxide 23 mmol/L (22-29); Chloride 104 mmol/L (98-107); Estimated GFR 104; Globulin 3.2 g/dL (2.4-3.5); Glucose 99 mg/dL (70-105); Potassium 3.9 mmol/L (3.5-5.1); Protein, Total 8.2 g/dL (6.0-8.3); Sodium 137 mmol/L (136-145)
[2023-06-28 14:18] LABS: INR-International Normal Ratio 1.3; Prothrombin Time 16.3 sec (12.0-14.7)
[2023-06-28 14:19] LABS: PTT 109.4 sec (22.9-36.1)
[2023-06-28] MEDS ORDERED: Morphine 4 MG/ML VIAL ONE ×2 (14:28→15:39)
[2023-06-28] MEDS ORDERED: Sodium Chloride 0.9% 0 ML ONE (16:09)
[2023-06-28] MEDS ORDERED: Cefepime 2 GM VIAL ONE (16:09)
[2023-06-28] MEDS ORDERED: Vancomycin (BATCH) 2 GM/500 ML BAG ONE (17:06)
[2023-06-28] MEDS ORDERED: Bisacodyl 5 MG TAB PO PRN (17:08)
[2023-06-28] MEDS ORDERED: Senokot S 8.6-50 MG TAB PO PRN (17:08)
[2023-06-28] MEDS ORDERED: Bisacodyl 10 MG SUPP PR PRN (17:08)
[2023-06-28] MEDS ORDERED: Acetaminophen 325 MG TAB PO PRN (17:08)
[2023-06-28] MEDS ORDERED: methylPREDNISolone Sod Succ 40 MG VIAL ONE (19:17)
[2023-06-28] MEDS ORDERED: diphenhydrAMINE 50 MG/ML VIAL ONE (19:17)
[2023-06-28 20:14] VITALS: BMI 29.6
[2023-06-29] MEDS: Cefepime 2 GM in Sodium Chloride 0.9% 100 ML IVPB SCH ×2 (03:52→15:13)
[2023-06-29 06:34] LABS: Hemoglobin A1c 5.2 % (4.0-6.0)
[2023-06-29 06:40] LABS: #Monocytes 0.4 thou/uL (0.11-0.59); #Neutrophils 8.6 thou/uL (1.40-6.50); %Basophils 0.2 % (0.0-1.0); %Lymphocytes 11.4 % (21.0-51.0); %Monocytes 3.9 % (0.0-10.0); %Neutrophils 84.1 % (42.0-75.0); Hematocrit 41.3 % (42.0-52.0); Mean Corpuscular HGB CONC 36.3 g/dL (32.0-36.0); Mean Corpuscular Hemoglobin 31.4 pg (27.0-31.0); Mean Corpuscular Volume 86.6 fl (78.0-98.0); Mean Platelet Volume 11.1 fL (7.4-10.4); RBC Distribution Width 11.8 % (11.5-14.5); Red Blood Cell (RBC) Count 4.77 mill/uL (4.70-6.10); White Blood Cell (WBC) Count 10.2 10x3/uL (4.8-10.8)
[2023-06-29 06:42] LABS: Platelet Count 124 10x3/uL (130-400)
[2023-06-29 07:09] LABS: ALT (SGPT) 60 U/L (8-55); AST (SGOT) 47 U/L (5-34); Albumin 4.3 g/dL (3.5-5.0); Alkaline Phosphatase 77 U/L (40-110); Anion Gap 14 mmol/L (10-20); BUN (Urea Nitrogen) 13 mg/dL (8.9-20.6); Bilirubin, Total 1.2 mg/dL (0.2-1.2); CRP (Inflammatory) 1.36 mg/dL (= or < 0.5); Calc. Creatinine Clearance 128 mL/min (70-130); Calcium 8.7 mg/dL (7.8-10.44); Carbon Dioxide 20 mmol/L (22-29); Chloride 107 mmol/L (98-107); Estimated GFR 110; Globulin 2.8 g/dL (2.4-3.5); Glucose 123 mg/dL (70-105); Protein, Total 7.1 g/dL (6.0-8.3); Sodium 137 mmol/L (136-145)
[2023-06-29 07:16] LABS: Cardiac Risk 6.1 (Less than 4.5); Cholesterol 166 mg/dl (< 200 Desired); HDL Cholesterol 27 mg/dL (>60 Neg Risk); LDL Cholesterol, Calculated 123 mg/dL; Triglycerides 80 mg/dL (Less than 150)
[2023-06-29] MEDS: Aspirin Chewable 81 MG TAB PO SCH (08:36)
[2023-06-29] MEDS: HYDROcodone/Acetaminophen 5/325 mg Tablet PO PRN ×2 (08:44→21:00)
[2023-06-29] MEDS ORDERED: FLU VACC QS2023-24(6MOS UP)/PF 60 MCG/0.5 ML SYRINGE IM ONE (09:00)
[2023-06-29] MEDS: Baclofen 10 MG TAB PO SCH ×2 (15:14→20:54)
[2023-06-29] MEDS: Gabapentin 400 MG CAP PO SCH ×2 (15:14→20:55)
[2023-06-30] MEDS: Cefepime 2 GM in Sodium Chloride 0.9% 100 ML IVPB SCH ×2 (03:41→15:14)
[2023-06-30] MEDS ORDERED: fentaNYL 50 mcg/mL 1 mL Vial ONE (06:32)
[2023-06-30] MEDS ORDERED: Midazolam HCl 2 mg/2 ml Vial ONE (06:32)
[2023-06-30] MEDS ORDERED: Bupivacaine PF 0.5% 30 ML VIAL ONE (11:14)
[2023-06-30] MEDS: DULoxetine 30 MG CAP PO SCH (11:21)
[2023-06-30] MEDS: Aspirin Chewable 81 MG TAB PO SCH (11:21)
[2023-06-30] MEDS: Baclofen 10 MG TAB PO SCH ×3 (11:21→19:57)
[2023-06-30] MEDS: Gabapentin 400 MG CAP PO SCH ×3 (11:22→19:56)
[2023-06-30] MEDS ORDERED: Lidocaine 1% PF 5 ML VIAL ONE (11:38)
[2023-06-30] MEDS ORDERED: Ondansetron PF 4 MG/2 ML Vial ONE (11:38)
[2023-06-30] MEDS ORDERED: PROPOFOL 200 MG/20 ML VIAL ONE (11:38)
[2023-06-30] MEDS ORDERED: traMADol HCl 50 MG TAB PO PRN (12:42)
[2023-06-30] MEDS ORDERED: HYDROmorphone 2 MG/ML VIAL SLOW IVP PRN (12:43)
[2023-06-30] MEDS ORDERED: Promethazine HCl 25 MG/ML VIAL IM PRN (12:43)
[2023-06-30] MEDS ORDERED: Ondansetron HCl/PF 4 MG/2 ML Vial IVP PRN (12:43)
[2023-06-30 17:02] LABS: #Basophils 0.1 thou/uL (0.0-0.2); #Eosinphils 0.1 thou/uL (0.0-0.7); #Monocytes 0.6 thou/uL (0.11-0.59); %Basophils 0.7 % (0.0-1.0); %Eosinophils 1.2 % (0.0-10.0); %Lymphocytes 29.7 % (21.0-51.0); %Monocytes 9.2 % (0.0-10.0); %Neutrophils 58.9 % (42.0-75.0); Hematocrit 42.7 % (42.0-52.0); Hemoglobin 15.6 g/dL (14.0-18.0); Mean Corpuscular HGB CONC 36.5 g/dL (32.0-36.0); Mean Corpuscular Volume 87.5 fl (78.0-98.0); Mean Platelet Volume 10.9 fL (7.4-10.4); Platelet Count 135 10x3/uL (130-400); RBC Distribution Width 12.3 % (11.5-14.5); Red Blood Cell (RBC) Count 4.88 mill/uL (4.70-6.10); White Blood Cell (WBC) Count 6.7 10x3/uL (4.8-10.8)
[2023-06-30 17:34] LABS: ALT (SGPT) 52 U/L (8-55); AST (SGOT) 45 U/L (5-34); Albumin 4.4 g/dL (3.5-5.0); Alkaline Phosphatase 73 U/L (40-110); Anion Gap 13 mmol/L (10-20); BUN (Urea Nitrogen) 14 mg/dL (8.9-20.6); Bilirubin, Total 1.1 mg/dL (0.2-1.2); Calc. Creatinine Clearance 120 mL/min (70-130); Calcium 9.1 mg/dL (7.8-10.44); Carbon Dioxide 22 mmol/L (22-29); Chloride 107 mmol/L (98-107); Estimated GFR 108; Globulin 2.8 g/dL (2.4-3.5); Glucose 101 mg/dL (70-105); Potassium 3.7 mmol/L (3.5-5.1); Protein, Total 7.2 g/dL (6.0-8.3); Sodium 138 mmol/L (136-145)
[2023-07-01] MEDS: Cefepime 2 GM in Sodium Chloride 0.9% 100 ML IVPB SCH (04:02)
[2023-07-01] MEDS: HYDROcodone/Acetaminophen 5/325 mg Tablet PO PRN (04:43)
[2023-07-01 06:44] LABS: #Eosinphils 0.1 thou/uL (0.0-0.7); #Monocytes 0.8 thou/uL (0.11-0.59); #Neutrophils 4.3 thou/uL (1.40-6.50); %Basophils 0.5 % (0.0-1.0); %Eosinophils 1.7 % (0.0-10.0); %Monocytes 11.2 % (0.0-10.0); %Neutrophils 58.2 % (42.0-75.0); Hematocrit 41.6 % (42.0-52.0); Hemoglobin 14.9 g/dL (14.0-18.0); Mean Corpuscular HGB CONC 35.8 g/dL (32.0-36.0); Mean Corpuscular Hemoglobin 31.4 pg (27.0-31.0); Mean Corpuscular Volume 87.6 fl (78.0-98.0); Mean Platelet Volume 10.7 fL (7.4-10.4); Platelet Count 155 10x3/uL (130-400); Red Blood Cell (RBC) Count 4.75 mill/uL (4.70-6.10); White Blood Cell (WBC) Count 7.5 10x3/uL (4.8-10.8)
[2023-07-01 07:11] LABS: ALT (SGPT) 48 U/L (8-55); AST (SGOT) 44 U/L (5-34); Albumin 4.2 g/dL (3.5-5.0); Alkaline Phosphatase 80 U/L (40-110); Anion Gap 14 mmol/L (10-20); BUN (Urea Nitrogen) 14 mg/dL (8.9-20.6); Bilirubin, Total 0.8 mg/dL (0.2-1.2); Calc. Creatinine Clearance 122 mL/min (70-130); Calcium 8.6 mg/dL (7.8-10.44); Carbon Dioxide 21 mmol/L (22-29); Chloride 107 mmol/L (98-107); Estimated GFR 109; Globulin 3.2 g/dL (2.4-3.5); Glucose 110 mg/dL (70-105); Protein, Total 7.4 g/dL (6.0-8.3); Sodium 138 mmol/L (136-145)
[2023-07-01] MEDS: Baclofen 10 MG TAB PO SCH ×2 (08:52→16:23)
[2023-07-01] MEDS: Gabapentin 400 MG CAP PO SCH ×2 (08:52→16:23)
[2023-07-01] MEDS: Aspirin Chewable 81 MG TAB PO SCH (08:52)
[2023-07-01] MEDS: DULoxetine 30 MG CAP PO SCH (08:53)
[2023-07-01] MEDS: Ondansetron PF 4 MG/2 ML Vial IVP PRN ×2 (09:37→12:30)
[2023-07-01 12:12] VITALS: BP 140/87; TEMP 97.8
[2023-07-01] MEDS ORDERED: Ondansetron PF 4 MG/2 ML Vial IVP SCH (12:30)
[2023-07-01] MEDS ORDERED: Ondansetron PF 4 MG/2 ML Vial IM SCH (12:30)
== END 2023-07-01 16:55 | disposition home or self-care (01) | DRG 256 ==
LOC: ERS 12:53 → SUATTDRO 12:53 → T4-A 17:08
PROVIDERS: ADMIT Family Medicine; ATTEND Family Medicine
PROC: 0Y6T0Z3 Detachment at Right 3rd Toe, Low, Open Approach (ICD-10-PCS; principal; 2023-06-30)
DX: I96 Gangrene, not elsewhere classified (principal); D68.59 Other primary thrombophilia; I69.351 Hemiplegia and hemiparesis following cerebral infarction affecting right dominant side; R79.89 Other specified abnormal findings of blood chemistry; I69.320 Aphasia following cerebral infarction; K76.0 Fatty (change of) liver, not elsewhere classified; D69.6 Thrombocytopenia, unspecified; Z79.01 Long term (current) use of anticoagulants; Z89.612 Acquired absence of left leg above knee; Z88.0 Allergy status to penicillin; Z79.82 Long term (current) use of aspirin; Z79.899 Other long term (current) drug therapy; J45.909 Unspecified asthma, uncomplicated; F32.A Depression, unspecified
CPT/HCPCS: 36415; 76705; 80053; 80061; 83036; 83605; 83735; 84443; 85025; 85379; 85610; 85730; 86140; 86850; 86900; 86901; 87040; 88305; 88311; 90471; 90686; 93005; 96365; 96366; 96367; 96375; 96376; 97139; G0008; J0692; J1200; J1650; J2250; J2270; J2405; J2704; J2920; J3010; J3370; J3490; S0020